=== PATIENT | female | born 1985 | race Caucasian/White ===

== ENCOUNTER → 2016-10-25 | Outpatient (REF) | payer OTHER ==
[~2016-10-25] MED LIST: CALCCHW12 OR; PRENTAB8 PO
== END ==
LOC: M LAB REF 16:48
PROVIDERS: ATTEND Obstetrics & Gynecology
DX: Z12.4 Encounter for screening for malignant neoplasm of cervix (principal)

== ENCOUNTER 2016-12-29 13:37 | Emergency (ER) | payer OTHER ==
[~2016-12-29] VITALS: Ht 154.9 cm; Wt 76.3 kg
[2016-12-29 13:39] VITALS: BP 139/71
[2016-12-29] MEDS ORDERED: MAGN400T2 (13:46)
[2016-12-29] MEDS ORDERED: IBUP80TA (13:46)
[2016-12-29] MEDS ORDERED: LORA10TA2 (13:46)
[2016-12-29] MEDS ORDERED: JUNETAB2 (13:46)
--- NOTE | 2016-12-29 14:25 | REP ---
LEFT KNEE, FIVE VIEWS: HISTORY: Injury. COMPARISON: 04/13/2016. There is no acute fracture or dislocation. The joint spaces are normal in appearance. IMPRESSION: There is no acute fracture or dislocation. Signed by Steve Peguero MD 12/29/2016 02:37 P
[2016-12-29] MEDS ORDERED: MOBI4TAB PO (14:33)
[2016-12-29] MEDS ORDERED: PERC5TAB12 PO (14:33)
[2016-12-29] MEDS ORDERED: PERCOCET 5MG/325MG TAB PO ONE (14:45)
== END 2016-12-29 14:51 | disposition home or self-care (01) ==
LOC: M ED 13:37
DX: M25.562 Pain in left knee (principal); F17.200 Nicotine dependence, unspecified, uncomplicated; Z86.14 Personal history of Methicillin resistant Staphylococcus aureus infection; Z79.899 Other long term (current) drug therapy; Z88.1 Allergy status to other antibiotic agents; Z88.2 Allergy status to sulfonamides; Z88.8 Allergy status to other drugs, medicaments and biological substances

== ENCOUNTER → 2017-01-23 | Outpatient (REF) | payer OTHER ==
[~2017-01-23] MED LIST changes: +IBUP80TA; +JUNETAB2; +LORA10TA2; +MAGN400T2; +MOBI4TAB PO; +PERC5TAB12 PO
[2017-01-23 14:53] LABS: VITAMIN B12 LEVEL 214 PG/ML (247-911)
[2017-01-23 14:58] LABS: ALBUMIN/GLOBULIN RATIO 1.25 (1.00-1.93); ALKALINE PHOSPHATASE 57 U/L (45-117); ALT/SGPT 18 U/L (12-78); ANION GAP 11 MEQ/L (8-16); AST/SGOT 9 U/L (15-37); BILIRUBIN,TOTAL 0.8 MG/DL (0.2-1.0); BLOOD UREA NITROGEN 13 MG/DL (7-18); CALCIUM LEVEL 8.5 MG/DL (8.5-10.1); CARBON DIOXIDE LEVEL 20 MEQ/L (21-32); CHLORIDE LEVEL 112 MEQ/L (98-107); CHOLESTEROL LEVEL 133 MG/DL (<200); CREATININE FOR GFR 0.86 MG/DL (0.55-1.02); GLOMERULAR FILTRATION RATE > 60.0 (>60); GLUCOSE, FASTING 71 MG/DL (70-105); MAGNESIUM LEVEL 2.5 MG/DL (1.8-2.4); POTASSIUM SERUM 4.2 MEQ/L (3.5-5.1); SODIUM LEVEL 143 MEQ/L (136-145); TOTAL PROTEIN 7.2 GM/DL (6.4-8.2); TRIGLYCERIDES LEVEL 84 MG/DL (<150)
== END ==
LOC: M LAB REF 13:36
PROVIDERS: ATTEND Nurse Practitioner Family
DX: E53.8 Deficiency of other specified B group vitamins (principal); E55.9 Vitamin D deficiency, unspecified; R73.9 Hyperglycemia, unspecified; E83.42 Hypomagnesemia; Z13.220 Encounter for screening for lipoid disorders

== ENCOUNTER 2017-02-07 13:10 | Outpatient (RCR) | payer OTHER | END 2017-02-16 | LOC: M PT 13:10 | PROVIDERS: ATTEND Physician Assistant | DX: S83.92XD Sprain of unspecified site of left knee, subsequent encounter (principal); X58.XXXD Exposure to other specified factors, subsequent encounter; Y92.9 Unspecified place or not applicable; S80.02XD Contusion of left knee, subsequent encounter ==

== ENCOUNTER 2017-03-16 10:25 | Outpatient (RCR) | payer OTHER | END 2017-03-18 | LOC: M PT 10:25 | PROVIDERS: ATTEND Physician Assistant | DX: Z51.89 Encounter for other specified aftercare (principal) ==

== ENCOUNTER 2017-03-29 10:45 | Outpatient (RCR) | payer OTHER | END 2017-04-18 | LOC: M PT 10:45 | PROVIDERS: ATTEND Physician Assistant | DX: S83.92XD Sprain of unspecified site of left knee, subsequent encounter (principal); X58.XXXD Exposure to other specified factors, subsequent encounter; Y92.9 Unspecified place or not applicable; S80.02XD Contusion of left knee, subsequent encounter ==

== ENCOUNTER → 2017-05-15 | Outpatient (REF) | payer OTHER | LOC: M LAB REF 14:37 | PROVIDERS: ATTEND Physician Assistant | DX: R30.0 Dysuria (principal); N39.0 Urinary tract infection, site not specified ==

== ENCOUNTER → 2017-05-29 | Outpatient (REF) | payer OTHER | LOC: M LAB REF 12:39 | PROVIDERS: ATTEND Physician Assistant Medical | DX: J32.0 Chronic maxillary sinusitis (principal) ==

== ENCOUNTER → 2017-07-04 | Outpatient (REF) | payer OTHER ==
[2017-07-05 14:03] LABS: AMORPHOUS SEDIMENT MODERATE (NEGATIVE); APPEARANCE, URINE TURBID (CLEAR); BACTERIA, URINE AUTO NEGATIVE (NEGATIVE); BILIRUBIN, URINE AUTO 1+ (NEGATIVE); BLOOD, URINE BLOOD NEGATIVE (NEGATIVE); COLOR, URINE YELLOW (YELLOW); GLUCOSE, URINE (UA) AUTO NEGATIVE (NEGATIVE); KETONE, URINE AUTO TRACE mg/dL (NEGATIVE); LEUKOCYTE ESTERASE, URINE AUTO NEGATIVE (NEGATIVE); MUCUS, URINE LARGE (NEGATIVE); NITRITE, URINE AUTO NEGATIVE (NEGATIVE); PROTEIN, URINE AUTO NEGATIVE (NEGATIVE); RBC, URINE AUTO 0 /HPF (0-3); SPECIFIC GRAVITY URINE AUTO 1.029 (1.002-1.035); SQUAMOUS EPITHELIAL CELL UR AU 0 /HPF (0-6); UROBILINOGEN, URINE AUTO 0.2 mg/dL (0.0-2.0); WBC, URINE AUTO 0 /HPF (0-3)
[2017-07-05 15:55] LABS: CHLAMYDIA DNA AMPLIFICATION NEGATIVE (NEGATIVE); GC DNA AMPLIFICATION NEGATIVE (NEGATIVE)
== END ==
LOC: M LAB REF 13:25
DX: N89.8 Other specified noninflammatory disorders of vagina (principal)

== ENCOUNTER → 2017-07-20 | Outpatient (CLI) | payer OTHER ==
[2017-07-20 19:07] LABS: BASO % 0.5 % (0.0-1.0); EOS # 0.1 10^3/uL (0.0-0.50); EOS % 1.1 % (0.0-3.0); HEMATOCRIT 43.3 % (36.0-47.0); HEMOGLOBIN 14.4 g/dl (12.0-16.0); IMMATURE GRANULOCYTE % 0.2 % (0-0); LYMPH # 2.3 10^3/uL (1.5-4.5); MEAN CORPUSCULAR HEMOGLOBIN 31.6 pg (27.0-33.0); MEAN CORPUSCULAR HGB CONC 33.3 g/dl (32.0-36.5); MONO # 0.5 10^3/uL (0.0-0.8); MONO % 7.9 % (0.0-5.0); NEUTROPHILS # 3.5 10^3/uL (1.8-7.7); NEUTROPHILS % 54.3 % (36.0-66.0); PLATELET COUNT, AUTOMATED 250 10^3/uL (150-450); RED BLOOD COUNT 4.56 10^6/uL (4.00-5.40); WHITE BLOOD COUNT 6.5 10^3/uL (4.0-10.0)
[2017-07-20 19:41] LABS: ERYTHROCYTE SEDIMENTATION RATE 4 mm/hr (0-20)
[2017-07-20 20:17] LABS: RHEUMATOID FACTOR QUANT < 10.0 IU/ML (0-15.0)
[2017-07-22 15:10] LABS: ANTINUCLEAR ANTIBODIES DIRECT Negative (Negative)
[2017-07-25 10:08] LABS: DRVV SCREEN 39.2 SEC
[2017-07-25 10:14] LABS: PTT LUPUS TYPE ANTICOAG SCREEN 0.9 (0-1.2)
== END ==
LOC: M LAB 17:53
DX: R51 Headache (principal); M79.641 Pain in right hand; M25.531 Pain in right wrist
CPT/HCPCS: 73110

== ENCOUNTER → 2017-08-15 | Outpatient (REF) | payer OTHER | LOC: M LAB REF 13:35 | DX: J02.9 Acute pharyngitis, unspecified (principal) ==

== ENCOUNTER 2017-09-18 07:46 | Emergency (ER) | payer OTHER | END 2017-09-18 09:19 | disposition home or self-care (01) | LOC: M ED 07:46 | DX: M65.871 Other synovitis and tenosynovitis, right ankle and foot (principal); F17.200 Nicotine dependence, unspecified, uncomplicated; Z87.81 Personal history of (healed) traumatic fracture; Z88.2 Allergy status to sulfonamides; Z88.1 Allergy status to other antibiotic agents; Z88.8 Allergy status to other drugs, medicaments and biological substances; Z79.899 Other long term (current) drug therapy; Z98.890 Other specified postprocedural states | CPT/HCPCS: 73630 ==

== ENCOUNTER 2017-10-08 20:03 | Emergency (ER) | payer OTHER | END 2017-10-08 20:48 | disposition home or self-care (01) | LOC: M ED 20:03 | DX: S56.911A Strain of unspecified muscles, fascia and tendons at forearm level, right arm, initial encounter (principal); X58.XXXA Exposure to other specified factors, initial encounter; Y92.9 Unspecified place or not applicable; Y93.9 Activity, unspecified; Y99.9 Unspecified external cause status; F17.200 Nicotine dependence, unspecified, uncomplicated; Z79.899 Other long term (current) drug therapy; Z88.1 Allergy status to other antibiotic agents; Z88.2 Allergy status to sulfonamides; Z88.8 Allergy status to other drugs, medicaments and biological substances | CPT/HCPCS: 99282 ==

== ENCOUNTER 2017-10-21 20:30 | Emergency (ER) | payer OTHER | END 2017-10-21 22:01 | disposition home or self-care (01) | LOC: M ED 20:30 | DX: S60.211A Contusion of right wrist, initial encounter (principal); W22.8XXA Striking against or struck by other objects, initial encounter; Y92.018 Other place in single-family (private) house as the place of occurrence of the external cause; Z88.1 Allergy status to other antibiotic agents; Z88.2 Allergy status to sulfonamides; Z88.8 Allergy status to other drugs, medicaments and biological substances; F17.210 Nicotine dependence, cigarettes, uncomplicated | CPT/HCPCS: 73110 ==

== ENCOUNTER → 2017-11-14 | Outpatient (CLI) | payer OTHER | LOC: M RAD 08:27 | DX: S63.91XA Sprain of unspecified part of right wrist and hand, initial encounter (principal); X58.XXXA Exposure to other specified factors, initial encounter; Y92.9 Unspecified place or not applicable | CPT/HCPCS: 73221 ==

== ENCOUNTER → 2017-11-16 | Outpatient (REF) | payer OTHER ==
[2017-11-16 14:13] LABS: APPEARANCE, URINE HAZY (CLEAR); BACTERIA, URINE AUTO NEGATIVE (NEGATIVE); BILIRUBIN, URINE AUTO NEGATIVE (NEGATIVE); BLOOD, URINE BLOOD NEGATIVE (NEGATIVE); COLOR, URINE YELLOW (YELLOW); GLUCOSE, URINE (UA) AUTO NEGATIVE (NEGATIVE); KETONE, URINE AUTO NEGATIVE (NEGATIVE); LEUKOCYTE ESTERASE, URINE AUTO NEGATIVE (NEGATIVE); MUCUS, URINE SMALL (NEGATIVE); NITRITE, URINE AUTO NEGATIVE (NEGATIVE); PROTEIN, URINE AUTO NEGATIVE (NEGATIVE); RBC, URINE AUTO 0 /HPF (0-3); SPECIFIC GRAVITY URINE AUTO 1.025 (1.002-1.035); SQUAMOUS EPITHELIAL CELL UR AU 0 /HPF (0-6); UROBILINOGEN, URINE AUTO 0.2 mg/dL (0.0-2.0); WBC, URINE AUTO 3 /HPF (0-3)
== END ==
LOC: M LAB REF 13:10
DX: N39.0 Urinary tract infection, site not specified (principal)

== ENCOUNTER 2017-12-22 10:18 | Outpatient (RCR) | payer OTHER | END 2018-01-16 | LOC: M OT 10:18 | DX: Z47.89 Encounter for other orthopedic aftercare (principal); S63.91XD Sprain of unspecified part of right wrist and hand, subsequent encounter | CPT/HCPCS: 97110 ==

== ENCOUNTER → 2018-02-12 | Outpatient (REF) | payer OTHER ==
[2018-02-12 14:05] LABS: BASO % 0.4 % (0.0-1.0); EOS % 0.6 % (0.0-3.0); HEMATOCRIT 39.6 % (36.0-47.0); HEMOGLOBIN 13.4 g/dl (12.0-15.5); IMMATURE GRANULOCYTE % 0.2 % (0-3.0); LYMPH # 1.5 10^3/uL (1.5-4.5); MEAN CORPUSCULAR HEMOGLOBIN 31.9 pg (27.0-33.0); MEAN CORPUSCULAR HGB CONC 33.8 g/dl (32.0-36.5); MEAN CORPUSCULAR VOLUME 94.3 fl (80.0-96.0); MONO # 0.3 10^3/uL (0.0-0.8); MONO % 6.1 % (0.0-5.0); NEUTROPHILS # 2.9 10^3/uL (1.8-7.7); NEUTROPHILS % 60.7 % (36.0-66.0); PLATELET COUNT, AUTOMATED 236 10^3/uL (150-450); RED CELL DISTRIBUTION WIDTH 12.1 % (11.5-14.5); WHITE BLOOD COUNT 4.7 10^3/uL (4.0-10.0)
[2018-02-12 14:24] LABS: TOTAL 25(OH) VITAMIN D 40.1 NG/ML (30.0-100.0)
[2018-02-12 14:24] LABS: VITAMIN B12 LEVEL 621 PG/ML (247-911)
== END ==
LOC: M LAB REF 13:53
DX: R23.8 Other skin changes (principal)

== ENCOUNTER → 2018-03-07 | Outpatient (REF) | payer OTHER | LOC: M LAB REF 13:05 | DX: R30.0 Dysuria (principal) ==

== ENCOUNTER 2018-03-14 13:48 | Outpatient (RCR) | payer OTHER | END 2018-03-18 | LOC: M PT 13:48 | DX: Z51.89 Encounter for other specified aftercare (principal); M76.62 Achilles tendinitis, left leg | CPT/HCPCS: 97140 ==

== ENCOUNTER 2018-03-28 10:50 | Outpatient (RCR) | payer OTHER | END 2018-04-18 | LOC: M PT 10:50 | DX: Z47.89 Encounter for other orthopedic aftercare (principal); M76.62 Achilles tendinitis, left leg | CPT/HCPCS: 97010 ==

== ENCOUNTER → 2018-04-11 | Outpatient (CLI) | payer OTHER ==
[2018-04-11 12:07] LABS: BASO % 0.4 % (0.0-1.0); EOS % 0.3 % (0.0-3.0); HEMATOCRIT 38.7 % (36.0-47.0); HEMOGLOBIN 13.4 g/dl (12.0-15.5); IMMATURE GRANULOCYTE % 0.4 % (0-3.0); LYMPH # 1.2 10^3/uL (1.5-4.5); MEAN CORPUSCULAR HEMOGLOBIN 32.2 pg (27.0-33.0); MEAN CORPUSCULAR HGB CONC 34.6 g/dl (32.0-36.5); MONO # 0.5 10^3/uL (0.0-0.8); MONO % 6.2 % (0.0-5.0); NEUTROPHILS % 77.7 % (36.0-66.0); PLATELET COUNT, AUTOMATED 217 10^3/uL (150-450); RED BLOOD COUNT 4.16 10^6/uL (4.00-5.40); WHITE BLOOD COUNT 7.7 10^3/uL (4.0-10.0)
[2018-04-11 13:20] LABS: IMMUNOGLOBULIN G 842 MG/DL (681-1648); IMMUNOGLOBULIN M 52 MG/DL (40-230); RUBELLA IgG QUALITATIVE IMMUNE (IMMUNE)
[2018-04-11 13:53] LABS: IMMUNOGLOBULIN E < 3.6 IU/ML (<100)
== END ==
LOC: M LAB 11:27
DX: D84.9 Immunodeficiency, unspecified (principal)
CPT/HCPCS: 82785

== ENCOUNTER → 2018-07-30 | Outpatient (CLI) | payer OTHER ==
[~2018-07-30] MED LIST changes: +GABA-1171 PO; +LORA-243; -LORA10TA2; +MONT10TA2; +NAPR-50 PO; +ROPI0.5T; +TOPI100T9
--- NOTE | 2018-07-30 13:43 | REP ---
RIGHT FOREARM, TWO VIEWS: HISTORY: Pain. There is no acute fracture or dislocation. The joint spaces are normal in appearance. IMPRESSION:There is no acute fracture or dislocation. Electronically Signed by Steve Peguero MD 07/30/2018 01:48 P
== END ==
LOC: M WUC 10:08
PROVIDERS: ATTEND Physician Assistant
DX: M79.631 Pain in right forearm (principal)

== ENCOUNTER 2018-08-19 12:23 | Emergency (ER) | payer OTHER ==
[~2018-08-19] VITALS: Ht 157.5 cm; Wt 65.9 kg
[~2018-08-19 12:23] MED LIST changes: -MONT10TA2; +MONT10TA2 PO; -ROPI0.5T; +ROPI0.5T PO
[2018-08-19 12:24] VITALS: BP 134/72
[2018-08-19] MEDS ORDERED: HYDR-3363 PO (12:29)
[2018-08-19] MEDS ORDERED: MICR1TAB18 PO (12:29)
[2018-08-19] MEDS ORDERED: FLON1SPR NARES (12:29)
[2018-08-19] MEDS ORDERED: NORCO, ANEXSIA 5/325MG TABLET (HYDROcodone/ACETAMINOPHEN) PO ONE (13:00)
--- NOTE | 2018-08-19 13:06 | REP ---
Clinical: trauma. Technique: AP, lateral, bilateral oblique views right ankle. Findings: No acute fracture or dislocation. Lateral swelling. Skeletal structures and joint spaces are intact and normal. Ankle mortise appears stable. No subcutaneous emphysema or radiodense foreign body. Impression: lateral swelling. no fx. Electronically Signed by Cyrus Do MD 08/19/2018 12:58 P
== END 2018-08-19 14:00 | disposition home or self-care (01) ==
LOC: M ED 12:23
DX: S93.401A Sprain of unspecified ligament of right ankle, initial encounter (principal); X50.9XXA Other and unspecified overexertion or strenuous movements or postures, initial encounter; Y92.018 Other place in single-family (private) house as the place of occurrence of the external cause; Z79.899 Other long term (current) drug therapy; Z88.1 Allergy status to other antibiotic agents; Z88.2 Allergy status to sulfonamides; Z88.8 Allergy status to other drugs, medicaments and biological substances; Z87.891 Personal history of nicotine dependence

== ENCOUNTER → 2019-03-13 | Outpatient (REF) | payer OTHER ==
[~2019-03-13] MED LIST changes: +FLON1SPR NARES; +HYDR-3363 PO; +MICR1TAB18 PO; -NAPR-50 PO; +NAPR-837 PO
[2019-03-15 14:22] LABS: HPV HYBRID CAPTURE II Negative (Negative)
== END ==
LOC: M LAB REF 19:30
PROVIDERS: ATTEND Obstetrics & Gynecology
DX: Z12.4 Encounter for screening for malignant neoplasm of cervix (principal); R87.610 Atypical squamous cells of undetermined significance on cytologic smear of cervix (ASC-US)

== ENCOUNTER → 2019-07-25 | Outpatient (REF) | payer OTHER ==
[2019-07-25 19:26] LABS: INFLUENZA A AMPLIFICATION NEGATIVE (NEGATIVE); INFLUENZA B AMPLIFICATION NEGATIVE (NEGATIVE)
== END ==
LOC: M LAB REF 16:16
PROVIDERS: ATTEND Physician Assistant
DX: J11.1 Influenza due to unidentified influenza virus with other respiratory manifestations (principal)

== ENCOUNTER → 2019-11-10 | Outpatient (CLI) | payer OTHER ==
[~2019-11-10] MED LIST changes: -MONT10TA2 PO; +MONT10TA4 PO; -ROPI0.5T PO; +ROPI0.5T3 PO
== END ==
LOC: M LABSMTC 09:14
PROVIDERS: ATTEND Orthopaedic Surgery
DX: Z11.59 Encounter for screening for other viral diseases (principal)

== ENCOUNTER 2020-02-06 09:46 | Emergency (ER) | payer OTHER ==
[~2020-02-06] VITALS: Ht 157.5 cm; Wt 86.1 kg
[2020-02-06] MEDS ORDERED: FLUO10CA16 (09:55)
[2020-02-06] MEDS ORDERED: ACETAMINOPHEN 500 MG TAB PO ONE (10:30)
[2020-02-06 11:25] LABS: BASO % 0.5 % (0.0-1.0); EOS % 0.5 % (0.0-3.0); HEMATOCRIT 42.2 % (36.0-47.0); HEMOGLOBIN 14.3 g/dl (12.0-15.5); LYMPH # 1.7 10^3/uL (1.5-5.0); LYMPH % 27.2 % (24.0-44.0); MEAN CORPUSCULAR HEMOGLOBIN 32.1 pg (27.0-33.0); MEAN CORPUSCULAR HGB CONC 33.9 g/dl (32.0-36.5); MEAN CORPUSCULAR VOLUME 94.6 fl (80.0-96.0); MONO # 0.5 10^3/uL (0.0-0.8); MONO % 7.5 % (0.0-5.0); NEUTROPHILS % 63.5 % (36.0-66.0); PLATELET COUNT, AUTOMATED 314 10^3/uL (150-450); RED BLOOD COUNT 4.46 10^6/uL (4.00-5.40); WHITE BLOOD COUNT 6.3 10^3/uL (4.0-10.0)
[2020-02-06 11:44] LABS: HCG, SERUM QUALITATIVE NEGATIVE (NEGATIVE)
[2020-02-06 11:48] LABS: ALBUMIN 3.2 GM/DL (3.2-5.2); ALT/SGPT 17 U/L (12-78); BILIRUBIN,DIRECT 0.1 MG/DL (0.0-0.2); BILIRUBIN,TOTAL 0.6 MG/DL (0.2-1.0); BLOOD UREA NITROGEN 10 MG/DL (7-18); CALCIUM LEVEL 8.5 MG/DL (8.5-10.1); CARBON DIOXIDE LEVEL 25 MEQ/L (21-32); CHLORIDE LEVEL 110 MEQ/L (98-107); CREATININE FOR GFR 0.74 MG/DL (0.55-1.30); GLOMERULAR FILTRATION RATE > 60.0 (>60); GLUCOSE, FASTING 87 MG/DL (70-100); LIPASE 68 U/L (73-393); POTASSIUM SERUM 4.2 MEQ/L (3.5-5.1); SODIUM LEVEL 139 MEQ/L (136-145); TOTAL PROTEIN 6.6 GM/DL (6.4-8.2)
[2020-02-06 11:58] LABS: BILIRUBIN, URINE MANUAL NEGATIVE (NEGATIVE); GLUCOSE, URINE (UA) MANUAL NEGATIVE (NEGATIVE); KETONE, URINE MANUAL NEGATIVE (NEGATIVE); UROBILINOGEN, URINE MANUAL NORMAL (NORMAL)
[2020-02-06 12:11] LABS: SQUAMOUS EPITHELIAL CELL URINE LARGE AMOUNT /hpf (SMALL AMT)
[2020-02-06 12:12] LABS: BACTERIA, URINE SMALL AMOUNT; MUCUS, URINE LARGE AMOUNT (NEGATIVE); RBC, URINE 0-1 /hpf (0-3)
--- NOTE | 2020-02-06 12:51 | REPVR ---
PROCEDURE INFORMATION: Exam: CT Abdomen And Pelvis Without Contrast Exam date and time: 02/06/2020 11:54 AM Age: 34 years old Clinical indication: Abdominal pain; Flank; Left; Additional info: Left cva/flank pain TECHNIQUE: Imaging protocol: Computed tomography of the abdomen and pelvis without contrast. Radiation optimization: All CT scans at this facility use at least one of these dose optimization techniques: automated exposure control; mA and/or kV adjustment per patient size (includes targeted exams where dose is matched to clinical indication); or iterative reconstruction. COMPARISON: US PELVIC NON-OB COMPLETE 05/24/2016 8:24 PM FINDINGS: Detailed evaluation of the abdominal and pelvic viscera is somewhat limited in the absence of intravenous contrast. Diaphragm: Asymmetric elevation of the right hemidiaphragm. Liver: Fatty infiltration of the liver. Gallbladder and bile ducts: No cholelithiasis or biliary ductal dilatation. Pancreas: No pancreatic mass or ductal dilatation. Spleen: No splenomegaly. Adrenals: Unremarkable adrenals. Kidneys and ureters: Normal renal morphology. No hydronephrosis or urolithiasis. Stomach and bowel: Mild wall thickening in the nondistended stomach. No significant small bowel dilatation. Prominent stool, in a pattern of constipation. Diverticula, without pericolonic inflammation. Appendix: No acute appendicitis. Intraperitoneal space: No significant free fluid. Vasculature: Normal caliber of the abdominal aorta. Lymph nodes: Subcentimeter lymph nodes. Bladder: Nondistended bladder. Reproductive: Surgical clips in the right adnexa. Bones/joints: Transitional vertebra at the lumbosacral junction. Soft tissues: Small umbilical hernia, along with umbilical piercing. IMPRESSION: 1. No hydronephrosis or urolithiasis. 2. Additional findings as described above. Electronically signed by: Niko Goodman On 02/06/2020 12:51:38 PM
[2020-02-06 13:20] VITALS: BP 111/69
[2020-02-06 13:31] LABS: HYALINE CAST, URINE NONE SEEN /lpf (0-1)
== END 2020-02-06 13:40 | disposition home or self-care (01) ==
LOC: M ED 09:46
DX: K59.00 Constipation, unspecified (principal); M54.5 Low back pain; K42.9 Umbilical hernia without obstruction or gangrene; K76.0 Fatty (change of) liver, not elsewhere classified; F17.210 Nicotine dependence, cigarettes, uncomplicated; Z88.2 Allergy status to sulfonamides; Z88.1 Allergy status to other antibiotic agents; Z88.8 Allergy status to other drugs, medicaments and biological substances; Z79.899 Other long term (current) drug therapy

== ENCOUNTER → 2020-05-27 | Outpatient (REF) | payer OTHER ==
[~2020-05-27] MED LIST changes: +FLUO10CA16; -MONT10TA4 PO; +MONT5TAB2 PO
[2020-05-27 23:29] LABS: APPEARANCE, URINE CLOUDY (CLEAR); BACTERIA, URINE AUTO NEGATIVE (NEGATIVE); BILIRUBIN, URINE AUTO NEGATIVE (NEGATIVE); BLOOD, URINE BLOOD NEGATIVE (NEGATIVE); COLOR, URINE YELLOW (YELLOW); GLUCOSE, URINE (UA) AUTO NEGATIVE (NEGATIVE); KETONE, URINE AUTO NEGATIVE (NEGATIVE); LEUKOCYTE ESTERASE, URINE AUTO 2+ (NEGATIVE); MUCUS, URINE SMALL (NEGATIVE); NITRITE, URINE AUTO NEGATIVE (NEGATIVE); PROTEIN, URINE AUTO 1+ mg/dL (NEGATIVE); RBC, URINE AUTO 1 /HPF (0-3); SQUAMOUS EPITHELIAL CELL UR AU 6 /HPF (0-6); WBC, URINE AUTO 13 /HPF (0-3)
== END ==
LOC: M LAB 23:16
PROVIDERS: ATTEND Physician Assistant
DX: N39.0 Urinary tract infection, site not specified (principal)

== ENCOUNTER 2020-07-01 11:01 | Emergency (ER) | payer OTHER ==
[~2020-07-01] VITALS: Ht 158.8 cm; Wt 85.4 kg
[2020-07-01 11:01] VITALS: BP 143/89
--- OUTSIDE RECORDS SUMMARY | 2020-07-01 11:07 | CCD | Continuity of Care Document ---
Author Author Alecia HUSSEIN Organization Unknown Address [address] [facility], [facility] e [address] [place] [address] Phone [phone] Care Team Providers Care Metallurgical Analyst Name Role Phone Maria Eugenia Wheeler WEB PRESS OPERATOR AUTM [phone] AlexAnne moore TENNIS INSTRUCTOR AUTM [phone] Problems Description No Information Available Social History Type Date Description Comments Sex Unknown ETOH Use Denies alcohol use Tobacco Use Start: Unknown Patient is a current smoker, smo kes every day smokes 2-3 a day Allergies, Adverse Reactions, Alerts Active Allergies Reaction Severity Comments Date Sudafed 01/04/2018 sulfa drugs 08/21/2018 Azithromycin 08/21/2019 Inactive Allergies NKDA 10/26/2017 Medications Active Medications SIG Qnty Indications Ordering Provide r Date Oxycodone HCL 5mg Tablets 1-2 tabs by mouth every 4 to 6 hours as needed / post surgical pain.( Please DO Not Fill Until 11/13/19). 30tabs Gwen Gardner MD 0 Gabapentin 100mg Capsules Unknown Naproxen 500mg Tablets Take One Tablet By Mouth Twice Daily as Needed Unknown Prednisone 10mg Tablets Take Three Tablets By Mouth Once Daily For Five Days Unknown Methylprednisolone 4mg TBPK Unknown Nicotine Polacrilex 4mg Gum Use as Directed Every One Hour as Needed Unknown Hydroxyzine HCL 25mg Tablets Unknown Benzonatate 200mg Capsules Take One Capsule By Mouth Three Times Daily For Seven Days Unknown Cefdinir 300mg Capsules Take One Capsule By Mouth Every 12 Hours For 10 Days Unknown Fluticasone Propionate 50mcg/Act Suspension instill Two Sprays In Each Nostril Once Daily Unknown Valacyclovir HCL 1gm Tablets Unknown Albuterol Sulfate HFA 108(90Base) mcg/Act Aerosol Inhale Two Puffs By Mouth Every 4 Hours as Needed Unknown Gabapentin 300mg Capsules Unknown Benzonatate 100mg Capsules Unknown Amoxicillin 875mg Tablets Unknown Doxycycline Monohydrate 100mg Caps ules Take One Capsule Two Times A Day For Seven Days Unknown Prednisone 20mg Tablets Take Two Tablets By Mouth Once Daily For Five Days Unknown Montelukast Sodium 10mg Tablets Unknown Fluoxetine HCL 10mg Capsules Take One Capsule By Mouth Once Daily Unknown Oseltamivir Phosphate 75mg Capsule s Take One Capsule By Mouth Twice Daily For Five Days U nknown Loratadine 10mg Tablets Unknown Topiramate 100mg Tablets Unknown Ropinirole HCL 2mg Tablets Unknown Ibuprofen 800mg Tablets Unknown Junel 1.5/30 1.5-30mg-mcg Tablets Unknown Immunizations Description No Information Available Vital Signs Date Vital Result Comment 04/30/2020 2:26pm Body Temperature 97.3 F 11/28/2019 12:59pm Body Temperature 96.0 F Results Description No Information Available Procedures Date Code Description Status 06/03/2020 66921 MRI Lower Extremity Any Joint Co mpleted 05/07/2020 92949 X-Ray Knee Complete W/Obliques & Tunnel And/Or Standing Views Completed 02/07/2020 64890 Therapeutic Procedure, Each 15 M inutes Completed 02/03/2020 35918 Therapeutic Procedure, Each 15 M inutes Completed 01/28/202074117 Inject/Drain Joint/Bursa Major C ompleted 01/27/2020 79583 Therapeutic Procedure, Each 15 M inutes Completed 01/24/2020 21673 Therapeutic Procedure, Each 15 M inutes Completed 01/24/2020 47767 Hot Or Cold Packs Completed 01/22/2020 02874 Therapeutic Procedure, Each 15 M inutes Completed 01/17/2020 58246 Therapeutic Procedure, Each 15 M inutes Completed 01/13/2020 89157 Therapeutic Procedure, Each 15 M inutes Completed 01/10/2020 09912 Therapeutic Procedure, Each 15 M inutes Completed 01/06/2020 60119 Physical Therapy Eval - Low Comp lexity Completed Medical Devices Description No Information Available Encounters Type Date Location Provider Dx Diagnosis Office Visit 05/07/2020 1:30p [place] Edison Alcantar, P.A. M25.562 Pain in left knee Office Visit 04/30/2020 2:30p Kenny Mejia PA-C M1 7.12 Unilateral primary osteoarthritis, left knee Office Visit 12/26/2019 1:45p [place] MD S86. 312D Strain musc/tend peroneal grp at low leg lev, left leg, subs Assessments Date Code Description Provider 06/03/2020 M25.562 Pain in left knee Edison avendano, P.A. 06/03/2020 M25.562 Pain in left knee MRI 05/07/2020 M25.562 Pain in left knee Edison avendano, P.A. 04/30/2020 M17.12 Unilateral primary osteoarthriti s, left knee Desire Mejia PA-C 03/17/2020 S86.312D Strain of muscle(s) and tendon(s) of peroneal muscle group at lower leg level, left leg, subsequent encounter Gwen Gardner MD 03/17/2020 S86.312D Strain of muscle(s) and tendon(s) of peroneal muscle group at lower leg level, left leg, subsequent encounter Gwen Gardner MD 02/07/2020 S86.312D Strain of muscle(s) and tendon(s) of peroneal muscle group at lower leg level, left leg, subsequent encounter Nyasia Hargrove PTA 02/03/2020 S86.312D Strain of muscle(s) and tendon(s) of peroneal muscle group at lower leg level, left leg, subsequent encounter Ajit Ricardo, PT, DPT 01/30/2020 S86.312D Strain of muscle(s) and tendon(s) of peroneal muscle group at lower leg level, left leg, subsequent encounter Gwen Gardner MD 01/28/2020 M17.12 Unilateral primary osteoarthriti s, left knee Ada Riojas PA-C 01/27/2020 S86.312D Strain of muscle(s) and tendon(s) of peroneal muscle group at lower leg level, left leg, subsequent encounter Nyasia Hargrove, VICE PRESIDENT OF HUMAN RESOURCES 01/24/2020 S86.312D Strain of muscle(s) and tendon(s) of peroneal muscle group at lower leg level, left leg, subsequent encounter Nyasia Hoppere, VICE PRESIDENT OF HUMAN RESOURCES 01/22/2020 S86.312D Strain of muscle(s) and tendon(s) of peroneal muscle group at lower leg level, left leg, subsequent encounter Monique López P.T.A. 01/17/2020 S86.312D Strain of muscle(s) and tendon(s) of peroneal muscle group at lower leg level, left leg, subsequent encounter Ajit Ricardo PT, DPT 01/13/2020 S86.312D Strain of muscle(s) and tendon(s) of peroneal muscle group at lower leg level, left leg, subsequent encounter Nyasia Hargrove, VICE PRESIDENT OF HUMAN RESOURCES 01/10/2020 S86.312D Strain of muscle(s) and tendon(s) of peroneal muscle group at lower leg level, left leg, subsequent encounter Ajit Ricardo PT, DPT 01/06/2020 S86.312D Strain of muscle(s) and tendon(s) of peroneal muscle group at lower leg level, left leg, subsequent encounter Ajit Ricardo PT, DPT 12/26/2019 S86.312D Strain of muscle(s) and tendon(s) of peroneal muscle group at lower leg level, left leg, subsequent encounter Gwen Gardner MD Plan of Treatment 05/07/2020 - Edison Alcantar, PSarahy.* M25.562 Pain in left knee* Follow up:* after lt knee mri for results with mkm Functional Status Description No Information Available Mental Status Description No Information Available Referrals Refer to Dr Reason for Referral Status Appt Date Yareli Fernandez PA-C MRI APPROVED PER [facility] WEB FOR MRI LEFT KNEE (31429) TO X-RAY. DG Created [address] [place] [address] [place] [address] [phone] Yareli Fernandez PA-C [facility] for [phone] e valuation. Patient going here, passed to PT Dept. AC Closed [address] [place] [address] [phone]
--- OUTSIDE RECORDS SUMMARY | 2020-07-01 11:07 | CCD | Continuity of Care Document ---
Author Author Alecia HUSSEIN Organization Unknown Address [address] [facility], [facility] e [address] [place] [address] Phone [phone] Care Team Providers Care Front Desk Clerk Name Role Phone Maria Eugenia Wheeler FIELD CANE SCALER HELPER AUTM [phone] AlexShankar mooree IV RN AUTM [phone] Problems Description No Information Available Social History [...] Information Available Procedures Date Code Description Status 05/07/2020 48210 X-Ray Knee Complete W/Obliques & Tunnel And/Or Standing Views Completed 02/07/2020 01260 Therapeutic Procedure, Each 15 M inutes Completed 02/03/2020 07982 Therapeutic Procedure, Each 15 M inutes Completed 01/28/2020 99148 Inject/Drain Joint/Bursa Major C ompleted 01/27/2020 51710 Therapeutic Procedure, Each 15 M inutes Completed 01/24/2020 64345 Therapeutic Procedure, Each 15 M inutes Completed 01/24/2020 91468 Hot Or Cold Packs Completed 01/22/2020 37439 Therapeutic Procedure, Each 15 M inutes Completed 01/17/2020 41212 Therapeutic Procedure, Each 15 M inutes Completed 01/13/2020 64550 Therapeutic Procedure, Each 15 M inutes Completed 01/10/2020 16300 Therapeutic Procedure, Each 15 M inutes Completed 01/06/2020 60151 Physical Therapy Eval - Low Comp lexity Completed Medical Devices Description No Information Available Encounters Type Date Location Provider Dx Diagnosis Office Visit 05/07/2020 1:30p [place] Alc[place]ar [place] M25.562 Pain in left knee Office Visit 04/30/2020 2:30p [place] Desire Mejia PA-C M1 7.12 Unilateral primary osteoarthritis, left knee Office Visit 12/26/2019 1:45p [place] MD S86. 312D Strain musc/tend peroneal grp at low leg lev, left leg, subs Assessments Date Code Description Provider 05/07/2020 M25.562 Pain in left knee Ever Ruiz 04/30/2020 M17.12 Unilateral primary osteoarthriti s, left [...] level, left leg, subsequent encounter Nyasia Hargrove, ASSOCIATE FINANCIAL PLANNER 01/24/2020 S86.312D Strain of muscle(s) and tendon(s) of peroneal muscle group at lower leg level, left leg, subsequent encounter Nyasia Hoppere, ASSOCIATE FINANCIAL PLANNER 01/22/2020 S86.312D Strain of muscle(s) and tendon(s) [...] level, left leg, subsequent encounter Nyasia Hargrove, ASSOCIATE FINANCIAL PLANNER 01/10/2020 S86.312D Strain of muscle(s) and tendon(s) [...] left leg, subsequent encounter Gwen Gardner MD 12/13/2019 S86.312D Strain of muscle(s) and tendon(s) of peroneal muscle group at lower leg level, left leg, subsequent encounter Gwen Gardner MD Plan of Treatment 05/07/2020 - Edison Alcantar, P.A.* M25.562 Pain in left knee* Follow up:* after lt knee mri for results with mkm Functional Status Description No Information Available Mental Status Description No Information Available Referrals Refer to Reason for Referral Status Appt Date Yareli Fernandez PA-C MRI APPROVED PER [facility] WEB FOR MRI LEFT KNEE (04754) TO X-RAY. DG Created [address] [address] [phone] Yareli Fernandez [place] [phone] e valuation. Patient going here, passed to PT Dept. AC Closed [facility] [address] [id number] [phone]
--- OUTSIDE RECORDS SUMMARY | 2020-07-01 11:07 | CCD | Continuity of Care Document ---
Author Author Alecia BRIDGES P.A.-C. Organization Unknown Address [address] [place] [address] Phone [phone] Care Team Providers Care Cured Meat Packing Supervisor Name Role Phone Bia Olson M.D. AUTM [phone] Liam Maria Eugeniadebi ARENAS AUTM [phone] Problems Active Problems Provider Date Paresthesia of hand Bia Olson M.D. Onset: 12/23/2013 Low back pain Bia Olson M.D. Onset: 12/23/2013 Pain in lower limb Bia Olson M.D. Onset: 12/23/2013 Hand pain Bia Olson M.D. Onset: 12/23/2013 Pain in right lower limb Bia Olson M.D. Onset: 11/09/19 16 Pain in left lower limb Bia Olson M.D. Onset: 6 Social History Type Date Description Comments Sex Unknown Tobacco Use Start: Unknown Patient has never smoked Allergies, Adverse Reactions, Alerts Active Allergies Reaction Severity Comments Date Sulfa Antibiotics 12/23/2013 Medications Active Medications SIG Qnty Indications Ordering Provide r Date Methocarbamol 500mg Tablets 1 po qhs prn 30tabs G44.219 Bia Olson M.D. 05/25/2020 Ropinirole HCL 2mg Tablets Take One Tablet By Mouth AT Bedtime 30tabs G25.81 Israel Olson M.D. 11/20/2018 Topiramate 100mg Tablets Take One Tablet By Mouth AT Bedtime 30tabs R51 Israel Olson M.D. 11/12/2018 Ibu 800mg Tablets Take One Tablet By Mouth Every 12 Hours as Needed Max Daily Dose Two Tablets 60tabs Bia Olson M.D. 05/22/2014 Immunizations Description No Information Available Vital Signs Date Vital Result Comment 08/09/2019 10:21am BP Systolic 112 mmHg BP Diastolic 80 mmHg Heart Rate 80 /min Respiratory Rate 16 /min 04/18/2019 6:40am BP Systolic 110 mmHg BP Diastolic 80 mmHg Heart Rate 80 /min Respiratory Rate 16 /min Results Description No Information Available Procedures Description No Information Available Medical Devices Description No Information Available Encounters Type Date Location Provider Dx Diagnosis Office Visit 05/25/2020 8:15a Main office - [place] Hipolito Santa.A.-C. 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 05/25/2020 M26.633 Articular disc disorder of bilat eral temporomandibular joint Hipolito Chung.A.-C. 05/25/2020 R20.2 Paresthesia of skin Hipolito Santa.A.-CBrent 05/25/2020 G25.81 Restless legs syndrome Albert ValerioABrent-CBrent 05/25/2020 M54.5 Low back pain Hipolito Chung.A.-C. 12/10/2019 R51 Headache Hipolito Chung.A.-C. 12/10/2019 M26.633 Articular disc disorder of bilat eral temporomandibular joint Lisa ChungCBrent 12/10/2019 M54.5 Low back pain Leslikarrie Bridges P.A.-C. 12/10/2019 G25.81 Restless legs syndrome Lesli adams P.A.-C. 12/10/2019 R20.2 Paresthesia of skin Lesli kramer P.A.-C. Plan of Treatment Future Appointment(s):* 08/24/2020 1:30 pm - Lesli Bridges P.A.-C. at Main office - [place] 05/25/2020 - Lesli Bridges P.A.-C.* G44.219 Episodic tension-type headache, not intractable* New Medication:* Methocarbamol 500 mg - 1 po qhs prn * Comments:* Add methocarbamol as needed. 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 She was advised to use a mouth guard. * R20.2 Paresthesia of skin* Comments:* Continue gabapentin. * G25.81 Restless legs syndrome* Comments:* Controlled. * M54.5 Low back pain* Comments:* Add methocarbamol. Increase gabapentin to 300 mg qhs. She has it at home. She declines PT. Hand out for back exercises sent to pt. * Follow up:* 3 months Functional Status Description No Information Available Mental Status Description No Information Available Referrals Description No Information Available
--- OUTSIDE RECORDS SUMMARY | 2020-07-01 11:07 | CCD | Continuity of Care Document ---
Author Author Alecia BRIDGES P.A.-C. Organization Unknown Address [address] [place] [address] Phone [phone] Care Team Providers Care Ton Container Shipper Name Role Phone Bia Olson M.D. AUTM [phone] Liam Maria Eugeniadebi ARENAS AUTM [phone] Problems Active Problems Provider Date Paresthesia of [...] Date Location Provider Dx Diagnosis Office Visit 12/10/2019 12:00p Main office - [place] Hipolito Santa.A.-C. R51 Headache M26.633 Articular disc disorder of b ilateral temporomandibular joint M54.5 Low back pain G25.81 Restless legs syndrome R20.2 Paresthesia of skin Assessments Date Code Description Provider 05/25/2020 G44.219 Episodic tension-type headache, not intractable Hipolito Chung.A.-C. 05/25/2020 M26.633 Articular disc disorder of bilat eral temporomandibular joint Hipolito Chung.A.-C. 05/25/2020 R20.2 Paresthesia of skin Hipolito Santa.A.-C. 05/25/2020 G25.81 Restless legs syndrome Albert ValerioA.-C. 05/25/2020 M54.5 Low back pain Hipolito Chung.A.-C. 12/10/2019 R51 Headache Hipolito Chung.A.-C. 12/10/2019 M26.633 Articular disc disorder of bilat eral temporomandibular joint Lesli Bridges P.A.-C. 12/10/2019 M54.5 Low back pain Lesli Bridges P.A.-C. 12/10/2019 G25.81 Restless legs syndrome Albert ValerioA.-C. 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
--- OUTSIDE RECORDS SUMMARY | 2020-07-01 11:07 | CCD | Continuity of Care Document ---
Author Author Alecia TURPIN [place] Organization Unknown Address [address] [place] [address] Phone [phone] Care Team Providers Care Digital Account Coordinator Name Role Phone [facility] AUTM [phone] [employer] AUTM [phone] Problems Description No Information Available Social History Type Date Description Comments Sex Unknown ETOH Use Denies alcohol use Tobacco Use Start: Unknown Patient is a current smoker, smo kes every day 4/day Smoking Status Reviewed: 06/24/20 Patient is a current smoker, smokes every day 4/day Allergies, Adverse Reactions, Alerts Active Allergies Reaction Severity Comments Date Sudafed hives 09/26/2017 Sulfa hives 09/26/2017 Zithromax hives 09/26/2017 Medications Active Medications SIG Qnty Indications Ordering Provide r Date Naproxen 375mg Tablets take 1 tablet by mouth 3 times daily as needed 30tabs M65.831 Mahendra Kan JR., M.D. 07/30/2018 Singulair 10mg Tablets 1 tab by mouth qdaily Unknown Loratadine 10mg Capsules 1 by mouth every day Unknown Topamax 100mg Tablets Unknown Requip Tablets Unknown Gabapentin 100mg Capsules Unknown BCP Unknown Hydroxyzine HCL Unknown 0 Ibuprofen 800mg Tablets none today take one tablet every 6-8hrs with food Unknown Nicorette 2mg Gum 3-4 qd Unknown Immunizations Description No Information Available Vital Signs Date Vital Result Comment 06/24/2020 3:46pm BP Systolic 158 mmHg BP Diastolic 83 mmHg Heart Rate 72 /min Respiratory Rate 16 /min O2 % BldC Oximetry 99 % Body Temperature 96.2 F Weight 188.00 lb Pain Level 7 02/02/2019 12:12pm BP Systolic 121 mmHg BP Diastolic 81 mmHg Heart Rate 94 /min Respiratory Rate 18 /min O2 % BldC Oximetry 97 % Body Temperature 98.3 F Weight 190.00 lb Height 61.5 inches 5'1.50" BMI (Body Mass Index) 35.3 kg/m2 Pain Level 6 Results Description No Information Available Procedures Description No Information Available Medical Devices Description No Information Available Encounters Type Date Location Provider Dx Diagnosis Office Visit 06/24/2020 3:35p Main Office DAISY Stanford J06 .9 Acute upper respiratory infection, unspecified Z20.828 Contact w and exposure to ot h viral communicable diseases Assessments Date Code Description Provider 06/24/2020 J06.9 Acute upper respiratory infectio n, unspecified DAISY Stanford 06/24/2020 Z20.828 Contact with and (brooks spected) exposure to other viral communicable diseases DAISY Stanford Plan of Treatment No Information Available Functional Status Description No Information Available Mental Status Description No Information Available Referrals Description No Information Available
--- OUTSIDE RECORDS SUMMARY | 2020-07-01 11:07 | CCD | Continuity of Care Document ---
Author Author Alecia TURPIN [place] Organization Unknown Address [address] [place] [address] Phone [phone] Care Team Providers Care Psychiatric Social Worker Name Role Phone [facility] AUTM [phone] [employer] AUTM [phone] Problems Description No Information Available Social History [...]
--- OUTSIDE RECORDS SUMMARY | 2020-07-01 11:08 | CCD | Continuity of Care Document ---
Author Author Alecia ALCANTAR P.A. Organization Unknown Address [address] [address] Phone [phone] Care Team Providers Care Vegetable Worker Name Role Phone Maria Eugenia Wheeler LEAD ASSISTANT MANAGER AUTM [phone] Anne Velasco TOP IRONER AUTM [phone] Problems Description No Information Available Social History [...] Available Procedures Date Code Description Status 05/07/2020 68826 X-Ray Knee Complete W/Obliques & Tunnel And/Or Standing Views Completed 02/07/2020 49187 Therapeutic Procedure, Each 15 M inutes Completed 02/03/2020 51812 Therapeutic Procedure, Each 15 M inutes Completed 01/28/2020 99122 Inject/Drain Joint/Bursa Major C ompleted 01/27/2020 45866 Therapeutic Procedure, Each 15 M inutes Completed 01/24/2020 74732 Therapeutic Procedure, Each 15 M inutes Completed 01/24/2020 20079 Hot Or Cold Packs Completed 01/22/2020 30997 Therapeutic Procedure, Each 15 M inutes Completed 01/17/2020 27494 Therapeutic Procedure, Each 15 M inutes Completed 01/13/2020 51927 Therapeutic Procedure, Each 15 M inutes Completed 01/10/2020 06561 Therapeutic Procedure, Each 15 M inutes Completed 01/06/2020 51841 Physical Therapy Eval - Low Comp lexity Completed 11/28/2019 66094 Apply Cast Short Leg Completed 11/21/2019 72502 Apply Cast Short Leg Completed 11/13/2019 46271 Tenolysis Flexor Or Extensor Ten don Leg Or Ankle Completed 11/13/2019 82595 Repair Flexor Tendon Leg Primary W/O Graft Completed 11/13/2019 89483 Repair Flexor Tendon Leg Primary W/O Graft Completed Medical Devices Description No Information Available Encounters Type Date Location Provider Dx Diagnosis Office Visit 05/07/2020 1:30p [place] Edison Alcantar, P.A. M25.562 Pain in left knee Office Visit 04/30/2020 2:30p [place] Desire Mejia PA-C M1 7.12 Unilateral primary osteoarthritis, left knee Office Visit 12/26/2019 1:45p [place] MD S86. 312D Strain musc/tend peroneal grp at low leg lev, left leg, subs Assessments Date Code Description Provider 05/07/2020 M25.562 Pain in left knee Edison [...] Unilateral primary osteoarthriti s, left knee Ada Phil Riojas PA-C 01/27/2020 S86.312D Strain of muscle(s) and tendon(s) of peroneal muscle group at lower leg level, left leg, subsequent encounter Nyasia Hargrove, GENERAL SERVICE TECHNICIAN 01/24/2020 S86.312D Strain of muscle(s) and tendon(s) of peroneal muscle group at lower leg level, left leg, subsequent encounter Nyasia Hargrove, GENERAL SERVICE TECHNICIAN 01/22/2020 S86.312D Strain of muscle(s) and tendon(s) [...] level, left leg, subsequent encounter Nyasia Hargrove, GENERAL SERVICE TECHNICIAN 01/10/2020 S86.312D Strain of muscle(s) and tendon(s) [...] left leg, subsequent encounter Gwen Gardner MD 11/28/2019 S86.312D Strain of muscle(s) and tendon(s) of peroneal muscle group at lower leg level, left leg, subsequent encounter Gwen Gardner MD 11/21/2019 S86.312D Strain of muscle(s) and tendon(s) of peroneal muscle group at lower leg level, left leg, subsequent encounter Gwen Gardner MD 11/13/2019 S86.312A Strain of muscle(s) and tendon(s) of peroneal muscle group at lower leg level, left leg, initial encounter Desire Mejia PA-C 11/13/2019 S86.312A Strain of muscle(s) and tendon(s) of peroneal muscle group at lower leg level, left leg, initial encounter Gwen Gardner MD 11/13/2019 X50.9xxA Other and unspecifie d overexertion or strenuous movements or postures, initial encounter Desire Mejia PA-C 11/13/2019 X50.9xxA Other and unspecifie d overexertion or strenuous movements or postures, initial encounter Gwen Gardner MD 11/13/[address] or not applica juan Mejia PA-C 11/13/[address] or not applica juan Gardner MD Plan of Treatment 05/07/2020 - Edison Alcantar, P.A.* M25.562 Pain in left knee* New Xrays:* MRI LT Knee, Ordered: 05/07/20 * Follow up:* after lt knee mri for results with [facility] Functional Status Description No Information Available Mental Status Description No Information Available Referrals Refer to Dr Reason for Referral Status Appt Date Yareli Fernandez PA-C MRI APPROVED PER [facility] FOR MRI LEFT KNEE (86522) TO X-RAY. DG Created [address] [place] [address] [place] [id number] [phone] [place] [phone] e valuation. Patient going here, passed to PT Dept. AC Closed [address] [place] [address] [place] [address] [phone]
--- OUTSIDE RECORDS SUMMARY | 2020-07-01 11:08 | CCD | Continuity of Care Document ---
Author Author Alecia ALCANTAR P.A. Organization Unknown Address [address] [address] Phone [phone] Care Team Providers Care Network Admin Name Role Phone Maria Eugenia Wheeler THERAPEUTIC RECREATION ASSISTANT AUTM [phone] AlexAnne moore BALANCING MACHINE SET UP WORKER AUTM [phone] Problems Description No Information Available Social History [...] 11/28/2019 12:59pm Body Temperature 96.0 F Results Test Acquired Date Facility Test Result H/L Range Note Coronavirus 2019 Nasopharygeal 11/10/[address] [address] (315)- - Coronavirus 2019 Nasopharygeal This test was de <SEE NOTE> 1 1 This test was developed and its performance characteristics determined by [facility]. This test has not been FDA cleared or approved. This test has been authorized by FDA under an Emergency Use Authorization (EUA). This test is only authorized for the duration of time the declaration that circumstances exist justifying the authorization of the emergency use of in vitro diagnostic tests for detection of SARS-CoV-2 virus and/or diagnosis of COVID-19 infection under section 564(b)(1) of the Act, 21 U.S.C. 360bbb-3(b)(1), unless the authorization is terminated or revoked sooner. When diagnostic testing is negative, the possibility of a false negative result should be considered in the context of a patient's recent exposures and the presence of clinical signs and symptoms consistent with COVID-19. An individual without symptoms of COVID-19 and who is not shedding SARS-CoV-2 virus would expect to have a negative (not detected) result in this assay. Performed at: - [facility] [address] [id number] Engrosser: Brie Yates MD, Phone: [phone] Not Detected Procedures Date Code Description Status 05/07/2020 66341 X-Ray Knee Complete W/Obliques & Tunnel And/Or Standing Views Completed 02/07/2020 48526 Therapeutic Procedure, Each 15 M inutes Completed 02/03/2020 65671 Therapeutic Procedure, Each 15 M inutes Completed 01/28/2020 64216 Inject/Drain Joint/Bursa Major C ompleted 01/27/2020 56420 Therapeutic Procedure, Each 15 M inutes Completed 01/24/2020 28358 Therapeutic Procedure, Each 15 M inutes Completed 01/24/2020 63150 Hot Or Cold Packs Completed 01/22/2020 97071 Therapeutic Procedure, Each 15 M inutes Completed 01/17/2020 45278 Therapeutic Procedure, Each 15 M inutes Completed 01/13/2020 35225 Therapeutic Procedure, Each 15 M inutes Completed 01/10/2020 31732 Therapeutic Procedure, Each 15 M inutes Completed 01/06/2020 12786 Physical Therapy Eval - Low Comp lexity Completed 11/28/2019 64396 Apply Cast Short Leg Completed 11/21/2019 48689 Apply Cast Short Leg Completed 11/13/2019 52358 Tenolysis Flexor Or Extensor Ten don Leg Or Ankle Completed 11/13/2019 63662 Repair Flexor Tendon Leg Primary W/O Graft Completed 11/13/2019 89797 Repair Flexor Tendon Leg Primary W/O Graft Completed Medical Devices Description No Information Available Encounters Type Date Location Provider Dx Diagnosis Office Visit 04/30/2020 2:30p [place] Desire Mejia PA-C S8 6.312D Strain musc/tend peroneal grp at low leg lev, left leg, subs Office Visit 12/26/2019 1:45p [place] Gwen Gardner MD S86. 312D Strain musc/tend peroneal grp at low leg lev, left leg, subs Assessments Date Code Description Provider 05/07/2020 M22.42 Chondromalacia patellae, left kn ee Ever Ramos 04/30/2020 S86.312D Strain of muscle(s) and tendon(s) of peroneal muscle group at lower leg level, left leg, subsequent encounter Desire Mejia PA-C 03/17/2020 S86.312D Strain of [...] level, left leg, subsequent encounter Nyasia Hargrove, GRANULATOR 02/03/2020 S86.312D Strain of muscle(s) and tendon(s) [...] level, left leg, subsequent encounter Nyasia Hargrove, GRANULATOR 01/24/2020 S86.312D Strain of muscle(s) and tendon(s) of peroneal muscle group at lower leg level, left leg, subsequent encounter Nyasia Hargrove, GRANULATOR 01/22/2020 S86.312D Strain of muscle(s) and tendon(s) of peroneal muscle group at lower leg level, left leg, subsequent encounter Monique López P.T.A. 01/17/2020 S86.312D Strain of muscle(s) and tendon(s) of peroneal muscle group at lower leg level, left leg, subsequent encounter Ajit Ricardo, PT, DPT 01/13/2020 S86.312D Strain of muscle(s) and tendon(s) of peroneal muscle group at lower leg level, left leg, subsequent encounter Nyasia Delvin, GRANULATOR 01/10/2020 S86.312D Strain of muscle(s) and tendon(s) of peroneal muscle group at lower leg level, left leg, subsequent encounter Ajit Ricardo, PT, DPT 01/06/2020 S86.312D Strain of muscle(s) and tendon(s) of peroneal muscle group at lower leg level, left leg, subsequent encounter Ajit Ricardo, PT, DPT 12/26/2019 S86.312D Strain of muscle(s) [...] of Treatment 05/07/2020 - Edison Alcantar, P.A.* M22.42 Chondromalacia patellae, left knee* New Xrays:* MRI LT Knee, Ordered: 05/07/20 * Follow up:* after lt knee mri for results with [facility] Functional Status Description No Information Available Mental Status Description No Information Available Referrals Refer to Reason for Referral Status Appt Date [place] [phone] e valuation. Patient going here, passed to PT Dept. AC Closed [facility] [address] [place] [address] [phone]
--- OUTSIDE RECORDS SUMMARY | 2020-07-01 11:08 | CCD ---
Author Author [facility] Organization [facility] Address Unknown Phone Unavailable Care Team Providers Care License Distributor Name Role Phone Yuliya Mcelroy LOOM INSPECTOR Unavailable Unavailable Yuliya Mcelroyandra LOOM INSPECTOR Unavailable Unavailable Navi A Masha LOOM INSPECTOR Unavailable Unavailable Yuliya Mcelroy Masha LOOM INSPECTOR Unavailable Unavailable Navi A Masha LOOM INSPECTOR Unavailable Unavailable Navi, A Masha LOOM INSPECTOR Unavailable Unavailable Mulberry, A Masha LOOM INSPECTOR Unavailable Unavailable Mulberry, A Masha LOOM INSPECTOR Unavailable Unavailable Mulberry, A Masha LOOM INSPECTOR Unavailable Unavailable Mulberry, A Masha LOOM INSPECTOR Unavailable Unavailable Navi, A Masha LOOM INSPECTOR Unavailable Unavailable Navi, A Masha LOOM INSPECTOR Unavailable Unavailable Navi, A Masha LOOM INSPECTOR Unavailable Unavailable Navi, A Masha LOOM INSPECTOR Unavailable Unavailable Mulberry, A Masha LOOM INSPECTOR Unavailable Unavailable Mulberry, A Masha LOOM INSPECTOR Unavailable Unavailable Mulberry, A Masha LOOM INSPECTOR Unavailable Unavailable Mulberry, A Masha LOOM INSPECTOR Unavailable Unavailable Mulberry, A Masha LOOM INSPECTOR Unavailable Unavailable Mulberry, A Masha LOOM INSPECTOR Unavailable Unavailable Mulberry, A Masha LOOM INSPECTOR Unavailable Unavailable Mulberry, A Masha LOOM INSPECTOR Unavailable Unavailable Mulberry, A Masha LOOM INSPECTOR Unavailable Unavailable Navi, A Masha LOOM INSPECTOR Unavailable Unavailable Navi, A Masha LOOM INSPECTOR Unavailable Unavailable Navi, A Masha LOOM INSPECTOR Unavailable Unavailable Navi, A Masha LOOM INSPECTOR Unavailable Unavailable MCELHERAN, KYLEIGH PA Unavailable Unavailable MCELHERAN, KYLEIGH PA Unavailable Unavailable MCELHERAN, KYLEIGH PA Unavailable Unavailable MCELHERAN, KYLEIGH PA Unavailable Unavailable MCELHERAN, KYLEIGH PA Unavailable Unavailable MCELHERAN, KYLEIGH PA Unavailable Unavailable MCELHERAN, KYLEIGH PA Unavailable Unavailable MCELHERAN, KYLEIGH PA Unavailable Unavailable MCELHERAN, KYLEIGH PA Unavailable Unavailable MCELHERAN, KYLEIGH PA Unavailable Unavailable MCELHERAN, KYLEIGH PA Unavailable Unavailable MCELHERAN, KYLEIGH PA Unavailable Unavailable MCELHERAN, KYLEIGH PA Unavailable Unavailable MCELHERAN, KYLEIGH PA Unavailable Unavailable MCELHERAN, KYLEIGH PA Unavailable Unavailable MCELHERAN, KYLEIGH PA Unavailable Unavailable MCELHERAN, KYLEIGH PA Unavailable Unavailable MCELHERAN, KYLEIGH PA Unavailable Unavailable MCELHERAN, KYLEIGH PA Unavailable Unavailable MCELHERAN, KYLEIGH PA Unavailable Unavailable MCELHERAN, KYLEIGH PA Unavailable Unavailable MCELHERAN, KYLEIGH PA Unavailable Unavailable MCELHERAN, KYLEIGH PA Unavailable Unavailable MCELHERAN, KYLEIGH PA Unavailable Unavailable MCELHERAN, KYLEIGH PA Unavailable Unavailable MCELHERAN, KYLEIGH PA Unavailable Unavailable MCELHERAN, KYLEIGH PA Unavailable Unavailable MCELHERAN, KYLEIGH PA Unavailable Unavailable Trickey, J Radha PA Unavailable Unavailable Trickey, J Radha PA Unavailable Unavailable Trickey, J Radha PA Unavailable Unavailable Trickey, J Radha PA Unavailable Unavailable Trickey, J Radha PA Unavailable Unavailable Trickey, J Radha PA Unavailable Unavailable Trickey, J Radha PA Unavailable Unavailable Trickey, J Radha PA Unavailable Unavailable Trickey, J Radha PA Unavailable Unavailable Trickey, J Radha PA Unavailable Unavailable Trickey, J Radha PA Unavailable Unavailable Trickey, J Radha PA Unavailable Unavailable Trickey, J Radha PA Unavailable Unavailable Trickey, J Radha PA Unavailable Unavailable Trickey, J Radha PA Unavailable Unavailable Trickey, J Radha PA Unavailable Unavailable Trickey, J Radha PA Unavailable Unavailable Trickey, J Radha PA Unavailable Unavailable Trickey, J Radha PA Unavailable Unavailable Trickey, J Radha PA Unavailable Unavailable Trickey, J Radha PA Unavailable Unavailable Trickey, J Radha PA Unavailable Unavailable Trickey, J Radha PA Unavailable Unavailable Trickey, J Radha PA Unavailable Unavailable Trickey, J Radha PA Unavailable Unavailable Trickey, J Radha PA Unavailable Unavailable Trickey, J Radha PA Unavailable Unavailable Trickey, J Radha PA Unavailable Unavailable Trickey, J Radha PA Unavailable Unavailable Trickey, J Radha PA Unavailable Unavailable Trickey, J Radha PA Unavailable Unavailable Trickey, J Radha PA Unavailable Unavailable Trickey, J Radha PA Unavailable Unavailable Trickey, J Radha PA Unavailable Unavailable Trickey, J Radha PA Unavailable Unavailable Trickey, J Radha PA Unavailable Unavailable Trickey, J Radha PA Unavailable Unavailable Trickey, J Radha PA Unavailable Unavailable Trickey, J Radha PA Unavailable Unavailable Trickey, J Radha PA Unavailable Unavailable Trickey, J Radha PA Unavailable Unavailable Trickey, J Radha PA Unavailable Unavailable Trickey, J Radha PA Unavailable Unavailable Trickey, J Radha PA Unavailable Unavailable Trickey, J Radha PA Unavailable Unavailable Trickey, J Radha PA Unavailable Unavailable Trickey, J Radha PA Unavailable Unavailable Trickey, J Radha PA Unavailable Unavailable Trickey, J Radha PA Unavailable Unavailable Trickey, J Radha PA Unavailable Unavailable Trickey, J Radha PA Unavailable Unavailable Trickey, J Radha PA Unavailable Unavailable Sameera Mejia PA Unavailable Unavailable Sameera Mejia PA Unavailable Unavailable Sameera Mejia PA Unavailable Unavailable Sameera Mejia PA Unavailable Unavailable Sameera Mejia PA Unavailable Unavailable Sameera Mejia PA Unavailable Unavailable Sameera Mejia PA Unavailable Unavailable Mejia, M Barratt PA Unavailable Unavailable Mejia, M Barratt PA Unavailable Unavailable Mejia, M Barratt PA Unavailable Unavailable Mejia, M Barratt PA Unavailable Unavailable Mejia, M Barratt PA Unavailable Unavailable Mejia, M Barratt PA Unavailable Unavailable Mejia, M Barratt PA Unavailable Unavailable Mejia, M Barratt PA Unavailable Unavailable Mejia, M Barratt PA Unavailable Unavailable Mejia, M Barratt PA Unavailable Unavailable Mejia, M Barratt PA Unavailable Unavailable Mejia, M Barratt PA Unavailable Unavailable Mejia, M Barratt PA Unavailable Unavailable Mejia, M Barratt PA Unavailable Unavailable Mejia, M Barratt PA Unavailable Unavailable Mejia, M Barratt PA Unavailable Unavailable Mejia, M Barratt PA Unavailable Unavailable Mejia, M Barratt PA Unavailable Unavailable Mejia, M Barratt PA Unavailable Unavailable Masha Mcelroy LOOM INSPECTOR LOOM INSPECTOR Unavailable Unavailable SOLEDAD PATRICK MD Unavailable Unavailable SOLEDAD PATRICK MD Unavailable Unavailable SOLEDAD PATRICK MD Unavailable Unavailable SOLEDAD PATRICK MD Unavailable Unavailable SOLEDAD PATRICK MD Unavailable Unavailable SOLEDAD PATRICK MD Unavailable Unavailable SOLEDAD PATRICK MD Unavailable Unavailable SOLEDAD PATRICK MD Unavailable Unavailable SOLEDAD PATRICK MD Unavailable Unavailable SOLEDAD PATRICK MD Unavailable Unavailable SOLEDAD PATRICK MD Unavailable Unavailable SOLEDAD PATRICK MD Unavailable Unavailable SOLEDAD PATRICK MD Unavailable Unavailable SOLEDAD PATRICK MD Unavailable Unavailable SOLEDAD PATRICK MD Unavailable Unavailable SOLEDAD PATRICK MD Unavailable Unavailable SOLEDAD PATRICK MD Unavailable Unavailable SOLEDAD PATRICK MD Unavailable Unavailable SOLEDAD PATRICK MD Unavailable Unavailable SOLEDAD PATRICK MD Unavailable Unavailable SOLEDAD PATRICK MD Unavailable Unavailable SOLEDAD PATRICK MD Unavailable Unavailable SOLEDAD PATRICK MD Unavailable Unavailable SOLEDAD PATRICK MD Unavailable Unavailable SOLEDAD PATRICK MD Unavailable Unavailable SOLEDAD PATRICK MD Unavailable Unavailable PATRICKSOLEDAD JUNG MD Unavailable Unavailable PATRICKSOLEDAD JUNG MD Unavailable Unavailable SOLEDAD PATRICK MD Unavailable Unavailable SOLEDAD PATRICK MD Unavailable Unavailable LETTIERE, A KYLEIGH PA Unavailable Unavailable LETTIERE, A KYLEIGH PA Unavailable Unavailable LETTIERE, A KYLEIGH PA Unavailable Unavailable LETTIERE, A KYLEIGH PA Unavailable Unavailable LETTIERE, A KYLEIGH PA Unavailable Unavailable LETTIERE, A KYLEIGH PA Unavailable Unavailable LETTIERE, A KYLEIGH PA Unavailable Unavailable LETTIERE, A KYLEIGH PA Unavailable Unavailable LETTIERE, A KYLEIGH PA Unavailable Unavailable LETTIERE, A KYLEIGH PA Unavailable Unavailable LETTIERE, A KYLEIGH PA Unavailable Unavailable LETTIERE, A KYLEIGH PA Unavailable Unavailable LETTIERE, A KYLEIGH PA Unavailable Unavailable LETTIERE, A KYLEIGH PA Unavailable Unavailable LETTIERE, A KYLEIGH PA Unavailable Unavailable LETTIERE, A KYLEIGH PA Unavailable Unavailable LETTIERE, A KYLEIGH PA Unavailable Unavailable LETTIERE, A KYLEIGH PA Unavailable Unavailable LETTIERE, A KYLEIGH PA Unavailable Unavailable LETTIERE, A KYLEIGH PA Unavailable Unavailable LETTIERE, A KYLEIGH PA Unavailable Unavailable LETTIERE, A KYLEIGH PA Unavailable Unavailable LETTIERE, A KYLEIGH PA Unavailable Unavailable LETTIERE, A KYLEIGH PA Unavailable Unavailable LETTIERE, A KYLEIGH PA Unavailable Unavailable LETTIERE, A KYLEIGH PA Unavailable Unavailable LETTIERE, A KYLEIGH PA Unavailable Unavailable LETTIERE, A KYLEIGH PA Unavailable Unavailable LETTIERE, A KYLEIHG PA Unavailable Unavailable Re-disclosure Warning The records that you are about to access may contain information from federally-assisted alcohol or drug abuse programs. If such information is present, then the following federally mandated warning applies: This information has been disclosed to you from records protected by federal confidentiality rules (42 CFR part 2). The federal rules prohibit you from making any further disclosure of this information unless further disclosure is expressly permitted by the written consent of the person to whom it pertains or as otherwise permitted by 42 CFR part 2. A general authorization for the release of medical or other information is NOT sufficient for this purpose. The Federal rules restrict any use of the information to criminally investigate or prosecute any alcohol or drug abuse patient.The records that you are about to access may contain highly sensitive health information, the redisclosure of which is protected by Article 27-F of the [facility] Public Health law. If you continue you may have access to information: Regarding HIV / AIDS; Provided by facilities licensed or operated by the [facility] Office of Mental Health; or Provided by the [facility] Office for People With Developmental Disabilities. If such information is present, then the following [facility] mandated warning applies: This information has been disclosed to you from confidential records which are protected by state law. State law prohibits you from making any further disclosure of this information without the specific written consent of the person to whom it pertains, or as otherwise permitted by law. Any unauthorized further disclosure in violation of state law may result in a fine or skilled nursing sentence or both. A general authorization for the release of medical or other information is NOT sufficient authorization for further disc losure. Family History Family Member Name Family Member Gender Family Member Status Date o f Status Description Data Source(s) Unknown Unknown Problem [facility] ([facility] Unknown Female Problem [facility] ([facility]) Unknown Unknown Problem [facility] ([facility] mother Encounters Encounter Providers Location Date Indications Data Source(s ) Outpatient Attender: KYLEIGH Peres cristhian 06/24/2020 02:35:00 PM EST [facility] ([facility] Outpatient Attender: Radha VILLA Main office - [facility] 05/25/2020 07:15:00 AM EST [facility] ([facility]) Outpatient Attender: KYLEIGH VILLA Physical Therapy 05/07/2020 12:30:00 PM EST [facility] ([facility]) Outpatient Attender: Desire VILLA Physical Therapy 01:30:00 PM EST [facility] ([facility]) Outpatient Attender: Masha SAHNI 04/04/2020 08:4 7:[address] [facility] Outpatient Attender: KAITLYN SAHNI 03/08/2020 02:37:[address] [facility] Outpatient Attender: Masha SAHNI 03/08/2020 02:3 7:[address] [facility] Outpatient Attender: Masha PRO 02/03/2020 08:1 2:[address] [facility] Outpatient Attender: Masha SAHNI 12/31/2019 09:3 0:[address] [facility] Office Visit Attender: SOLEDAD PATRICK MD Physical Therapy 01:45:00 PM EDT [facility] ([facility]) Outpatient Attender: Radha VILLA Main office - [facility] 12/10/2019 12:00:00 PM EDT [facility] ([facility]) Outpatient Attender: Masha SAHNI 11/12/2019 03:3 1:[address] [facility] Outpatient Attender: Masha Mcelroy [facility] 11/09/2019 10:1 7:[address] [facility] Outpatient Attender: KAITLYN Mcelroy [facility] 10/30/2019 01:41:[address] [facility] Outpatient Attender: KAITLYN Mcelroy [facility] 10/05/2019 06:40:[address] [facility] Outpatient Attender: Masha Mcelroy [facility] 10/05/2019 06:3 9:[address] [facility] Outpatient Attender: KAITLYN Mcelroy [facility] 10/01/2019 01:17:[address] [facility] Outpatient Attender: KAITLYN Mcelroy [facility] 10/01/2019 01:16:[address] [facility] Outpatient Attender: KAITLYN Mcelroy [facility] 10/01/2019 01:13:[address] [facility] Outpatient Attender: KAITLYN Mcelroy [facility] 09/06/2019 02:49:[address] [facility] Outpatient Attender: Masha Mcelroy [facility] 09/01/2019 12:1 7:[address] [facility] Outpatient Attender: Radha VILLA Main office [facility] 08/09/2019 10:45:00 AM EST [facility] ([facility]) Outpatient Attender: Masha Mcelroy [facility] 06/09/2019 11:2 7:02 PM [facility] Outpatient Attender: Masha Mcelroy [facility] 05/08/2019 09:0 7:01 PM [facility] Outpatient Attender: KAITLYN Mcelroy [facility] 05/06/2019 03:46:03 P M [facility] Outpatient Attender: KAITLYN Mcelroy [facility] 05/06/2019 02:12:02 P M [facility] Medications Medication Brand Name Start Date Product Form Dose Route Admi nistrative Instructions Pharmacy Instructions Status Indications Reaction Description Data Source(s) Methocarbamol 500 MG Oral Tablet Methocarbamol 05/25/2020 12:00:00 AM EST ORAL active [facility] ([facility]) 20 mg 03/09/2020 12:00:00 AM EDT tablet 10 TAKE TWO TABLETS BY MOUTH EVERY DAY FOR 5 DAYS TAKE TWO TABLETS BY MOUTH EVERY DAY FOR 5 DAYS SOLD: 020 [facility] Oxycodone Hydrochloride 5 MG Oral Tablet Oxycodone HCL 11/08/2019 12:00:00 AM EDT ORAL active [facility] ([facility]) Oxycodone Hydrochloride 5 MG Oral Tablet Oxycodone HCL 09/02/2019 12:00:00 AM EDT ORAL completed [facility] ([facility]) 100 mg 05/20/2019 12:00:00 AM EST capsule 14 TAKE ONE CAPSULE TWO TIMES A DAY FOR SEVEN DAYS TAKE ONE CAPSULE TWO TIMES A DAY FOR SEVEN DAYS SOLD: 05/20/2019 [facility] gabapentin 300 MG Oral Capsule Gabapentin 04/18/2019 12:00:00 AM EDT ORAL completed [facility] ([facility]) Insurance Providers Payer name Policy type / Coverage type Policy ID Covered alliance party ID Covered alliance party's relationship to sanchez Policy Sanchez Plan Information [facility] COMMUNITY PLAN [facility] [id number] SP [id number] [facility] O [id number] S [id number] [facility] COMMUNITY PLAN [facility] [id number] SP [id number] Managed Care - [facility] Community Plan P [id number] S [id number] Medicaid S [id number] S [id number] Managed Care - [facility] Community Plan P [id number] S [id number] Medicaid S [id number] S [id number] Managed Care - Community Plan [facility] P [id number] S [id number] Medicaid S [id number] S [id number] [facility] Community Plan Commercial [id number] Self [id number] [facility] Health Maintenance Organization (HMO) [id number] Self [id number] [facility] Community Plan Commercial [id number] Self [id number] [facility] Community Plan Commercial [id number] Self [id number] [facility] Community Plan Commercial [id number] Self [id number] [facility] Community Plan Commercial [id number] Self [id number] [facility] Community Plan Commercial [id number] Self [id number] [facility] Health Maintenance Organization (HMO) [id number] Self [id number] [facility] Community Plan Commercial [id number] Self [id number] Community Plan - [facility] Commercial [id number] Self [id number] Managed Care - Community Plan [facility] P [id number] S [id number] [facility] Community Plan Commercial [id number] Self [id number] [facility] Community Plan Commercial [id number] Self [id number] [facility] Community Plan Commercial [id number] Self [id number] [facility] Community [id number] Preferred Provider Organization (PPO) [id number] [facility] Community Plan Commercial [id number] Self [id number] [facility] Community Plan Commercial [id number] Self [id number] [facility] Health Maintenance Organization (HMO) [id number] Self [id number] [facility] Community Plan Commercial [id number] Self [id number] [facility] Community Plan Commercial [id number] Self [id number] [facility] Community Plan Commercial [id number] Self [id number] [facility] Community Plan Commercial [id number] Self [id number] [facility] Community Plan Commercial [id number] Self [id number] [facility] Community Plan Commercial [id number] Self [id number] UN COMMUNITY PLAN MCDHMO [id number] SP [id number] [facility] Community Plan Commercial [id number] Self [id number] [facility] Health Maintenance Organization (HMO) [id number] Self [id number] [facility] Community Plan Commercial [id number] Self [id number] Managed Care - Community Plan [employer] P [id number] S [id number] [facility] Community Plan Commercial [id number] Self [id number] UN COMMUNITY PLAN MCDHMO [id number] SP [id number] Medicaid S [id number] S [id number] [facility] Community Plan Commercial [id number] Self [id number] Managed Care - Community Plan [employer] P [id number] S [id number] UNHC COMMUNITY PLAN MCDHMO UNHC COMMUNITY PLAN MCDHMO Self [employer] [facility] COMMUNITY PLAN MCDHMO Community Plan - [facility] Commercial Self [facility] Health Maintenance Organization (HMO) Self Medicaid S [id number] S [id number] Managed Care - Community Plan [employer] P [id number] S [id number] Managed Care - Community Plan [facility] P [id number] S [id number] UNHC COMMUNITY PLAN MCDHMO [id number] SP [id number] Medicaid S [id number] S [id number] Managed Care - Community Plan [employer] P [id number] S [id number] Managed Care - Community Plan [facility] P [id number] S [id number] Managed Care BCBS O [id number] S [id number] Medicaid S [id number] S [id number] Managed Care - Community Plan [facility] P UNAVAILABLE S UNAVAILABLE MEDICAID [id number] SP [id number] [employer]UE [employer] MEYER PLAN [id number] SP [id number] [employer] BCBS P [id number] S [id number] MEDICAID [id number] SP [id number] SELF PAY UNAVAILABLE SP UNAVAILA BLE [id number] Problems, Conditions, and Diagnoses Code Display Name Description Problem Type Effective Dates Data Source(s) V70.0 Health Screening Health Screening 10/05/2019 06 :39:[address] [facility] 786.2 Cough Cough 05/06/2019 03:44:[address] [facility] Surgeries/Procedures Procedure Description Date Indications Data Source(s) MRI Lower Extremity Any Joint 06/03/2020 12:00:[address] [facility] ([facility] RADIOLOGIC EXAM KNEE COMPLETE 4/MORE VIEWS 05/07/2020 12:00:00 AM EST [facility] ([facility] ) THERAPEUTIC PX 1/> AREAS EACH 15 MIN EXERCISES 12:00:00 AM EDT [facility] ([facility]) THERAPEUTIC PX 1/> AREAS EACH 15 MIN EXERCISES 12:00:00 AM EDT [facility] ([facility]) ARTHROCENTESIS ASPIR&/INJECTION MAJOR JT/BURSA 12:00:00 AM EDT [facility] ([facility]) THERAPEUTIC PX 1/> AREAS EACH 15 MIN EXERCISES 12:00:00 AM EDT [facility] ([facility] APPLICATION MODALITY 1/> AREAS HOT/COLD PACKS 01/24/20 12:00:00 AM EDT [facility] ([facility]) THERAPEUTIC PX 1/> AREAS EACH 15 MIN EXERCISES 12:00:00 AM EDT [facility] ([facility]) THERAPEUTIC PX 1/> AREAS EACH 15 MIN EXERCISES 12:00:00 AM EDT [facility] ([facility]) THERAPEUTIC PX 1/> AREAS EACH 15 MIN EXERCISES 12:00:00 AM EDT [facility] ([facility] THERAPEUTIC PX 1/> AREAS EACH 15 MIN EXERCISES 12:00:00 AM EDT [facility] ([facility]) THERAPEUTIC PX 1/> AREAS EACH 15 MIN EXERCISES 12:00:00 AM EDT [facility] ([facility]) Physical Therapy Eval - Low Complexity 01/06/2020 12:0 0:00 AM EDT [facility] ([facility]) APPLICATION SHORT LEG CAST BELOW KNEE-TOE 11/28/2019 1 2:00:00 AM EDT [facility] ([facility]) APPLICATION SHORT LEG CAST BELOW KNEE-TOE 11/21/2019 1 2:00:00 AM EDT [facility] ([facility]) Repair Flexor Tendon Leg Primary W/O Graft 11/13/2019 12:00:00 AM EDT [facility] ([facility]) Repair Flexor Tendon Leg Primary W/O Graft 11/13/2019 12:00:00 AM EDT [facility] ([facility]) Tenolysis Flexor Or Extensor Tendon Leg Or Ankle 11/12 12:00:00 AM EDT [facility] ([facility]) Tenolysis Flexor Or Extensor Tendon Leg Or Ankle 11/12 12:00:00 AM EDT [facility] ([facility]) MRI Lower Extremity Any Joint 08/06/2019 12:00:[address] [facility] ([facility]) RADEX ANKLE COMPLETE MINIMUM 3 VIEWS 07/11/2019 12:00: 00 AM EST [facility] ([facility]) ARTHROCENTESIS ASPIR&/INJECTION MAJOR JT/BURSA 12:00:00 AM EST [facility] ([facility]) Results ID Date Data Source [id number] 06/24/2020 12:00:00 AM EST [place] Name Value Range Interpretation Code Description Data Alisha rce(s) Supporting Document(s) SARS coronavirus 2 Ag Negative [facility] This lab was ordered by [facility] and reported by [facility]. ID Date Data Source [id number] 02/06/2020 10:20:[address] [facility] Name Value Range Interpretation Code Description Data Alisha rce(s) Supporting Document(s) HCT 42.2 % 36.0-47.[address] [facility] HGB 14.3 g/dL 12.0-15.[address] [facility] MCH 33.9 G/DL pg 32.0-36.5 N [facility] MCHC 32.1 PG % 27.0-33.[address] [facility] PLATELETS 314 10 10*3/mm3 150-[address] [facility] RBC 4.46 10 10*6/mm3 4.00-5.[address] [facility] RDW 12.4 % 11.5-14.[address] [facility] WBC TOTAL 6.3 4.0-10.[address] [facility] ID Date Data Source [id number] 02/06/2020 10:20:[address] [facility] Name Value Range Interpretation Code Description Data Alisha rce(s) Supporting Document(s) BG FASTING 87 mg/dL 70-100 N [facility] ID Date Data Source [id number] 11/10/2019 10:30:00 AM EDT [facility] ([facility]) Name Value Range Interpretation Code Description Data Alisha rce(s) Supporting Document(s) Laboratory test finding (navigational concept) Laboratory test result [facility] ([facility]) This test was developed and its performa nce characteristics determined by [facility]. This test has not been FDA cleared [...] result in this assay. Performed at: - [facility] [id number] Redrying Machine Operator: Brie Yates MD, Phone: [phone] Not Detected ID Date Data Source [id number] 11/10/2019 12:00:00 AM EDT [facility] Name Value Range Interpretation Code Description Data Alisha rce(s) Supporting Document(s) SARS CORONAVIRUS 2 RNA [facility] This lab was ordered by [facility] and reported by [facility]. ID Date Data Source [id number] 10/01/2019 08:50:[address] [facility] Measurements & CalculationsHeight: 64.75 inches 164.47 cm 5 ft. 4.75 in.Weight: 190 pounds 86.36 kg Body Mass Index (BMI): 31.98BMI Interpretation: ObeseBody Surface Area (BSA): 1.93Weight Management Education Done (Nutrition/Physical Activity)Vital SignsTemperature: 98.4F oral Pulse Rate: 72 beats/minuteRespiratory Rate: 16 respirations/minuteBlood Pressure: 115/78 left arm sitting automaticO2 Saturation: 99% room airVital Signs performed by: Romero Sandhu MA, October 01, 2019 9:03 AMInitial Intake Information from: patientRoom #: 13Smoking, Tobacco, Vaping or Smoke Exposure StatusSmoke Status: former smokerTobacco Use: NoDo you vape? YesCessation advice given: YesWhat is in your device? nicotineFrequency: current every day vaperPassive Smoke Exposure: YesPassive Smoke Exposure comments: vaping Menstrual HistoryAny possibility of ? NoComments: 3 week pill Healthcare HistorySince your last office visit...Have you been admitted to the hospital? NoHave you been to an emergency room (ER) or urgent care clinic? No - last night for arm painHave you seen another healthcare provider? Yes - ortho, allergy dr, ENT, radha tricky Have you seen a dentist? Yes - jeffersonIntake performed by: Romero Sandhu MA, October 01, 2019 8:55 AMRate Your HealthIn general, would you say your health is? Very GoodPain AssessmentAre you currently having any pain which... You would like your provider to address? No Affects your activity level? NoDepression Screening - PHQ-2Over the last two weeks, have you... Had little interest or pleasure in doing things? Not at all Been feeling down, depressed, or hopeless? Not at all PHQ- 2 Score: 0Anxiety Screening - FRANSISCA-2Over the last two weeks, have you been... Feeling nervous, anxious, or on edge? Not at all Unable to stop or control worrying? Not at all FRANSISCA-2 Score: 0Food InsecurityWithin the past year...Did you worry whether your food would run out before you got money to buy more? NoWas there a time when the food you bought didn't last and you didn't have money to get more? NoInfectious Disease / Travel ScreeningRecent travel for you or any close contacts? NoHave you had any close contact with anyone diagnosed with or under investigation for COVID-19 (coronavirus)? NoHave you had any of the following symptoms recently? Fever? NoRespiratory symptoms: cough, cold, congestion, shortness of breath, difficulty breathing? NoScreening, Brief Intervention, & Referral to Treatment (SBIRT)Pre-Screening Questions How many times have you have 4 or more drinks in a day? 0How many times have you used an illegal drug or used a prescription medication for a non-medical reason? 0Performed by: Romero Sandhu MA, October 01, 2019 8:56 AMPatient History Medical History:B12 DeficiencyNasal polypsSurgical History:tubalNasal polyps removedFamily History:FH DiabetesFH HypertensionFH Kidney DiseaseFH Thyroid ProblemsFH Other CancerSocial/Personal History:Smoking History:Patient currently smokes every day.Patient has been counseled to quit. Chief Complaintmedication refills RM 13History of Present Illness (HPI)34 yr old female Pt here today for medication refill. Pt denies pain at this time. Pt state she is taking all medications with no side effects. Pt states needs her prozac refilled Pt states she has been out of Prozac since Monday09/27/2019. Pt states healthy diet and physical activities. HPI performed by: Masha SAHNI, October 01, 2019 9:42 AMTransitions of Care InboundProblem ReviewProblem List was reviewed and/or updated during this visit.Medication Reconciliation & ReviewMedication List was reviewed and/or updated during this visit, including review of any eubk-kle-bamnayt medications, herbal therapies, and/or supplements.Allergy ReviewAllergy List was reviewed and/or updated during this visit.Adult Preventive CareProvider Calculated and Reviewed all Clinical Protocols for patient today. Labs/Meds/Other Counseling-Nutrition and Physical Activity:BMI Interpretation: Obese (10/01/2019) Counseling: Done (10/01/2019) Physical Activity: Done (10/01/2019)Cancer Screening Pap Smear/HPV TestingReviewed: Previous Comments: a womens perspective in 05/03/2019 (05/06/2019)Today's Comments: PT has an appointment with womens perspective Review of Systems General: Denies loss of appetite, chills, dizziness, fatigue, fever, continued fever, headache, feeling ill, sweats, night sweats, sleep disturbances, weight loss. Eyes: Denies blurring of vision, double vision, irritation, discharge, vision loss, eye pain, eye swelling, droopy eyelid, sensitivity to light, redness, itching. Ears/Nose/Throat: Denies earache, ear discharge, ringing in ears, decreased hearing, nasal congestion, nosebleeds, runny nose, sore throat, hoarseness, difficulty swallowing, dry mouth, tooth pain, bleeding gums, swollen glands. Cardiovascular: Denies chest pain, palpitations, feeling faint, trouble breathing w/exertion, SOB upon lying down, SOB at night, peripheral edema, elevated blood pressure, decreased heart rate. Respiratory: Denies cough, difficulty breathing, shortness of breath, excessive sputum, coughing up blood, wheezing, chest pain. Gastrointestinal: Denies nausea, vomiting, diarrhea, constipation. Genitourinary: Denies urinary incontinence, pain with urination, burning with urination, urinary frequency, urinary hesitancy, urinary urgency, urinary urgency at night, incomplete emptying. Musculoskeletal: Denies back pain, joint pain, leg pain, joint swelling, body aches, muscle aches, muscle cramps, muscle weakness, stiffness, recent injury. Skin: Denies rash, hives, redness, itching, dryness, nail changes, suspicious lesions, athlete's foot, rash on palms, rash on bottom of feet. Neurologic: Denies muscle impairment, weakness, numbness/tingling, seizures, slurred speech, feeling faint, tremors, vertigo, paralysis on one side, paralysis on both sides. Psychiatric: Denies depression, anxiety, memory loss, mental disturbance, suicidal ideation, homicidal ideation, hallucinations, paranoia, feeling stressed, hearing voices. Endocrine: Denies cold intolerance, heat intolerance, excessive thirst, excessive hunger, excessive urination, weight loss, weight gain. Physical ExamGeneral Appearance: well nourished, well hydrated, no acute distressEyes, External: conjunctivae and lids normal, EOMIRespiratory, Auscultation: clear to auscultation bilaterally; no rales, rhonchi, or wheezesRespiratory, Effort: no intercostal retractions or use of accessory musclesCardiovascular, Auscultation: S1, S2 audible; no murmur, rub, or gallop; RRRPeripheral Circulation: no clubbing, cyanosis, edema, or varicositiesAbdomen: soft, non-tender, no masses, bowel sounds normalGait & Station: normalSkin, Inspection: no rashes, lesions, or ulcerationsOrientation: oriented to time, place, and personMood & Affect: no depression, anxiety, or agitationJudgment & Insight: intactCare Management Plan Transitions of CareInboundRate Your HealthIn general, would you say your health is? Very GoodAssessment & Plan Problems:Added: Health Screening (ICD-V70.0) (DKH32-O68.9) Assessment: Instructions: Fast labs ordered to be done prior to your next visit.Assessed:ASTHMA (ICD-493.90) (LLR86-K10.909) Assessment: Instructions: We have sent a refill of your singulair today. please try to avoid asthma triggers.FRANSISCA-generalized anxiety disorder (ICD-300.02) (SVK88-G73.1) Assessment: Instructions: please continue prozac as prescribed. Please continue to monitor report and avoid triggers causing increased anxiety.Allergic rhinitis (ICD-477.9) (GDM00-W79.9) Assessment: Instructions: Refilled LoratadinePatient Instructions/Care Plan: ASTHMA: We have sent a refill of your singulair today. please try to avoid asthma triggers.FRANSISCA-generalized anxiety disorder: please continue prozac as prescribed. Please continue to monitor report and avoid triggers causing increased anxiety.Allergic rhinitis: Refilled LoratadineHealth Screening: Fast labs ordered to be done prior to your next visit. Plan developed in collaboration with patient and/or familyMedications:GABAPENTIN 300 MG ORAL CAPSULEPROZAC 10 MG ORAL CAPSULENAPROXEN 500 MG ORAL TABLETREQUIP 2 MG ORAL TABLETNICORETTE 4 MG MOUTH/THROAT GUMFLONASE ALLERGY RELIEF 50 MCG/ACT NASAL SUSPENSIONSINGULAIR 10 MG ORAL TABLETBIRTH CONTROL PILL-NAME UNKNOWNCLARITIN 10 MG ORAL TABLETTOPAMAX 50 MG ORAL TABLETIBUPROFEN 800 MG ORAL TABLETVENTOLIN HFA 108 (90 Base) MCG/ACT INHALATION AEROSOL SOLUTIONMedication Changes:Refilled:PROZAC 10 MG ORAL CA PSULE-take one tablet by mouth daily Qty: 30[Capsule] Refills: 3 Method: ElectronicSINGULAIR 10 MG ORAL TABLET-1 tab by mouth every night at bedtime Qty: 30[Tablet] Refills: 2 Method: ElectronicFLONASE ALLERGY RELIEF 50 MCG/ACT NASAL SUSPENSION-one spray to each nostril twice daily as needed. Qty: 1[Container] Refills: 1 Method: ElectronicCLARITIN 10 MG ORAL TABLET-1 pill po daily Qty: 30[Tablet] Refills: 2 Method: ElectronicRemoved:VALACYCLOVIR HCL 1 GM ORAL TABLET-take two tablets by mouth every 12 hours x 1 day, HYDROXYZINE HCL 25 MG ORAL TABLET-Take one tablet by mouth three time daily as needed, GABAPENTIN 100 MG ORAL CAPSULE-take one tab po at bedtime dailyChanged:From: ORAL SINGULAIR 10 MG ORAL TABLET Qty: [id number] Refills: 30[Tablet] To: SINGULAIR 10 MG ORAL TABLET-1 tab by mouth every night at bedtime Qty: 30[Tablet] Refills: 2From: NASAL FLONASE 50 MCG/ACT NASAL SUSPENSION Qty: [id number] Refills: 1[Container] To: FLONASE ALLERGY RELIEF 50 MCG/ACT NASAL SUSPENSION-one spray to each nostril twice daily as needed. Qty: 1[Container] Refills: 1Allergies:BACTRIM (SULFAMETHOXAZOLE-TRIMETHOPRIM TABS) (Critical)SUDAFED (PSEUDOEPHEDRINE HCL TABS) (Severe)ZITHROMAX (AZITHROMYCIN PACK) (Severe)SULFA (Moderate)Orders:COMP METABOLIC PANEL [CPT-61465] CBC W/DIFF [CPT-63817] HgBA1c [CPT-25178] LIPID PANEL [CPT-79558] TSH [CPT-85400] T-4 free [CPT-30833] Vitamin D 250H Unspecified [CPT-19049] URINALYSIS [CPT-03928] Adult - Ofc Vst, EST, Level IV [CPT-46510] Follow-Up Return to clinic: 3-4 months for follow up Clinical Visit Summary CompletedMedications:CLARITIN 10 MG ORAL TABLET (LORATADINE) 1 pill po daily #30[Tablet] x 2 Entered and Authorized by: Masha SAHNI Method used: Electronically to [facility]* ([facility]) [address] [place] [address] RxID: [id number] ALLERGY RELIEF 50 MCG/ACT NASAL SUSPENSION (FLUTICASONE PROPIONATE) one spray to each nostril twice daily as needed. #1[Container] x 1 Route:NASAL Entered and Authorized by: Masha SAHNI Method used: Electronically to [facility]* ([facility]) [address] [place] [address] Note to Pharmacy: Route: NASAL; Indications: COUGH;SINUSITIS RxID: [id number] 10 MG ORAL TABLET (MONTELUKAST SODIUM) 1 tab by mouth every night at bedtime #30[Tablet] x 2 Route:ORAL Entered and Authorized by: Masha SAHNI Method used: Electronically to [facility]* (retail) [address] [place] [address] Note to Pharmacy: Route: ORAL; Indications: ASTHMA RxID: [id number] 10 MG ORAL CAPSULE (FLUOXETINE HCL) take one tablet by mouth daily #30[Capsule] x 3 Route:ORAL Entered and Authorized by: Masha SAHNI Method used: Electronically to [facility]* (retail) [address] [place] [address] Note to Pharmacy: Route: ORAL; Indications: ANXIETY DEPRESSION RxID: [id number] signed by Masha SAHNI on 10/05/2019 at 6:39 PM Name Value Range Interpretation Code Description Data Alisha rce(s) Supporting Document(s) ID Date Data Source [id number] 08/22/2019 12:52:00 PM EST [facility] ([facility]) Name Value Range Interpretation Code Description Data Alisha rce(s) Supporting Document(s) Laboratory test finding (navigational concept) <pending> [facility] ([facility]) ID Date Data Source [id number] 05/06/2019 02:48:37 PM EST [facility] Measurements & CalculationsHeight: 64.75 inches 164.47 cm 5 ft. 4.75 in.Weight: 188 pounds 85.45 kg Body Mass Index (BMI): 31.64BMI Interpretation: ObeseBody Surface Area (BSA): 1.92Vital SignsTemperature: 97.2FPulse Rate: 80 beats/minuteRespiratory Rate: 16 respirations/minuteBlood Pressure: 115/80 left arm sitting automaticO2 Saturation: 98% room airVital Signs performed by: Brandi Kan MA, May 06, 2019 2:54 PMAdult Questionnaire1) Does the patient have a long-term health problem with heart disease, lung disease, asthma, kidney disease, metabolic disease (e.g., diabetes), anemia, or other blood disorder? No2) Does the patient have allergies to medications, food, a vaccine component, or latex? No3) Does the patient have cancer, leukemia, AIDS, or any other immune system problem? No4) Does the patient live with or expect to have close contact with a person whose immune system is severely compromised and who must be in protective isolation (e.g., an isolation room of a bone marrow transplant unit)? No5) Does the patient take cortisone, prednisone, other steroids, or anticancer drugs, or has the patient had radiation treatments? No6) During the past year, has the patient received a transfusion of blood or blood products, or been given immune (gamma) globulin or an antiviral drug? No7) For women: Is the patient or is there a chance she could become during the next month? Yes8) Has the patient ever had a serious reaction to a vaccine in the past? No9) Has the patient had a seizure or a brain or other nervous system problem? No10) Has the patient received any vaccinations in the past 4 weeks? No11) Is the patient older than age 49 years? No12) Is the patient sick today? No13) Vaccine information given and explained to patient? YesVaccines Administered/Entered:Vaccination Group: InfluenzaSeries: 2Vaccination: Flulaval Quadrivalent Intramuscular Suspension Prefilled Syringe 0.5 MLMfr / Lot# / Exp.Date: [employer] / [id number] / 12/17/2019Amt. Given / Route / Site: 0.5 mL / IM / Left DeltoidNDC / CVX: [id number] / 150Administered Date: 05/06/2019 15:51VFC Eligibility: Not VFC EligibleVIS Date: 01/31/2019VIS Given / VIS Given On: Yes / 05/06/2019Comments: Administered by: Radha Junior Initial Intake Information from: patientRoom #: 8Infectious Disease- Travel Have you or your sexual partner travelled outside of the country recently? NoSmoking, Tobacco or Smoke Exposure StatusSmoke Status: current some day smokerTobacco Use: YesAdv to Quit: YesPassive Smoke Exposure: YesMenstrual HistoryLast Menstrual Period (LMP): 04/02/2019LMP History: ApproximateAny possibility of ? NoHealthcare HistorySince your last office visit...Have you been admitted to the hospital? NoHave you been to an emergency room (ER) or urgent care clinic? No - last night for arm painHave you seen another healthcare provider? Yes - ortho, allergy dr, ENT, radha moreno Have you seen a dentist? Yes - jeffersonIntake performed by: Brandi Kan MA, May 06, 2019 2:50 PMRate Your HealthIn general, would you say your health is? ExcellentPain AssessmentAre you currently having any pain which... You would like your provider to address? Yes Affects your activity level? YesDepression Screening - PHQ-2Over the last two weeks, have you... Had little interest or pleasure in doing things? Not at all Been feeling down, depressed, or hopeless? Not at all PHQ-2 Score: 0Anxiety Screening - FRANSISCA-2Over the last two weeks, have you been... Feeling nervous, anxious, or on edge? Not at all Unable to stop or control worrying? Not at all FRANSISCA-2 Score: 0Infectious Disease- Travel Cont. Any possibility of ? NoPain AssessmentPain ScaleNumeric Rating Scale: 8 / 10Location: kneeDuration: 2-3 daysFrequency: DailyCharacter/Quality: achingIs the pain radiating? NoScreening, Brief Intervention, & Referral to Treatment (SBIRT)Pre- Screening Questions How many times have you have 4 or more drinks in a day? 0How many times have you used an illegal drug or used a prescription medication for a non-medical reason? 0Performed by: Brandi Kan MA, May 06, 2019 2:51 PMPatient History Medical History:[id number] DeficiencyNasal polypsSurgical History:tubalNasal polyps removedFamily History:FH DiabetesFH HypertensionFH Kidney DiseaseFH Thyroid ProblemsFH Other CancerSocial/Personal History:Smoking History:Patient currently smokes every day.Patient has been counseled to quit. Smoking Status: current some day smokerAdvised to Quit/Tobacco Education: YesChief Complaintcold sores gone, cough 3 weeksHistory of Present Illness (HPI)33 year old female patient in today for follow up visit. Patient states cold sores are gone. patient states she has had a cough for about 3 weeks now.Pt [facility]. Pt states treated with tessolon perlse prednisone and ABX for her ear infection. Pt states prozac is working well . Pt states taking hydroxyzine as needed maybe once per week. Pt denies anxiety or depression at this time. HPI performed by: Masha SAHNI, May 06, 2019 3:28 PMTransitions of Care InboundProblem ReviewProblem List was reviewed and/or updated during this visit.Medication Reconciliation & ReviewMedication List was reviewed and/or updated during this visit, including review of any uate-nsg-dtgqdvk medications, herbal therapies, and/or supplements.Allergy ReviewAllergy List was reviewed and/or updated during this visit.Adult Preventive CareProvider Calculated and Reviewed all Clinical Protocols for patient today. Screening Tobacco Screening: Smoking Status: current some day smoker (05/06/2019) Advised to Quit: Yes (05/06/2019)Cancer Screening Pap Smear/HPV TestingReviewed: Previous Comments: a woman's perspective september 2018 (12/03/2018)Today's Comments: a womens perspective in 05/03/2019Review of Systems General: Denies loss of appetite, chills, dizziness, fatigue, fever, continued fever, headache, feeling ill, sweats, night sweats, sleep disturbances, weight loss. Eyes: Denies blurring of vision, double vision, irritation, discharge, vision loss, eye pain, eye swelling, droopy eyelid, sensitivity to light, redness, itching. Ears/Nose/Throat: Denies earache, ear discharge, ringing in ears, decreased hearing, nasal congestion, nosebleeds, runny nose, sore throat, hoarseness, difficulty swallowing, dry mouth, tooth pain, bleeding gums, swollen glands. Cardiovascular: Denies chest pain, palpitations, feeling faint, trouble breathing w/exertion, SOB upon lying down, SOB at night, peripheral edema, elevated blood pressure, decreased heart rate. Respiratory: Denies cough, difficulty breathing, shortness of breath, excessive sputum, coughing up blood, wheezing, chest pain. Gastrointestinal: Denies nausea, vomiting, bleeding, burning, itching, irritation, cramps, diarrhea, constipation. Genitourinary: Denies urinary incontinence, pain with urination, burning with urination, urinary frequency, urinary hesitancy, urinary urgency, urinary urgency at night, incomplete emptying, blood in urine, pelvic pain. Musculoskeletal: Denies back pain, joint pain, leg pain, joint swelling, body aches, muscle aches, muscle cramps, muscle weakness, stiffness, recent injury. Skin: Denies rash, hives, redness, itching, dryness, nail changes, suspicious lesions, athlete's foot, rash on palms, rash on bottom of feet. Neurologic: Denies muscle impairment, weakness, numbness/tingling, seizures, slurred speech, feeling faint, tremors, vertigo, paralysis on one side, paralysis on both sides. Psychiatric: Denies depression, anxiety, memory loss, mental disturbance, suicidal ideation, homicidal ideation, hallucinations, paranoia, feeling stressed, hearing voices. Endocrine: Denies cold intolerance, heat intolerance, excessive thirst, excessive hunger, excessive urination, weight loss, weight gain. Heme/Lymphatic: Denies abnormal bruising, bleeding, enlarged lymph nodes. Physical ExamGeneral Appearance: well nourished, well hydrated, no acute distressEyes, External: conjunctivae and lids normal, EOMIRespiratory, Auscultation: clear to auscultation bilaterally; no rales, rhonchi, or wheezesRespiratory, Effort: no intercostal retractions or use of accessory musclesCardiovascular, Auscultation: S1, S2 audible; no murmur, rub, or gallop; RRRPeripheral Circulation: no clubbing, cyanosis, edema, or varicositiesAbdomen: soft, non-tender, no masses, bowel sounds normalGait & Station: normalSkin, Inspection: no rashes, lesions, or ulcerationsOrientation: oriented to time, place, and personMood & Affect: no depression, anxiety, or agitationJudgment & Insight: intactCare Management Plan Transitions of CareInboundRate Your HealthIn general, would you say your health is? ExcellentAssessment & Plan Problems:Added: Cough (ICD-786.2) (QUQ60-S59) Assessment: Instructions: Please continue medication as prescribed. Please continue adequate hydration to include 6-8 glasses of water daily. Please try to maintain adequate rest.Assessed:O/E-herpes labialis-cold sore (ICD-054.9) (FEE38-R06.1) Assessment: resolved per patientLight cigarette smoker (EJC21-Z94.0) Assessment: quit smoking three months ago. Instructions: Congratulations on your smoking cessation. Please try not to resume smoking.ANXIETY DEPRESSION (ICD-300.4) (JDE82-E41.8) Assessment: We have refilled Prozac today. Pt states working well Instructions: Please continue medication as prescribed. Please continue to monitor and report triggers causing increased anxiety and or depression.Needs influenza immunization (ICD-V04.81) (VBT64-Q76.3) Assessment: Instructions: You have received your flu vaccine today. There may cait soreness at the injection site. Mplease report any adverse reactions.Assessment not SavedHYPERGLYCEMIA (LUE64-N89.9): Patient Instructions/Care Plan: Light cigarette smoker: Congratulations on your smoking cessation. Please try not to resume smoking.ANXIETY DEPRESSION: Please continue medication as prescribed. Please continue to monitor and report triggers causing increased anxiety and or depression.Needs influenza immunization: You have received your flu vaccine today. There may cait soreness at the injection site. Mplease report any adverse reactions.Cough: Please continue medication as prescribed. Please continue adequate hydration to include 6-8 glasses of water daily. Please try to maintain adequate rest. Plan developed in collaboration with patient and/or familyMedications:GABAPENTIN 300 MG ORAL CAPSULEPROZAC 10 MG ORAL CAPS ULEVALACYCLOVIR HCL 1 GM ORAL TABLETNAPROXEN 500 MG ORAL TABLETHYDROXYZINE HCL 25 MG ORAL TABLETREQUIP 2 MG ORAL TABLETNICORETTE 4 MG MOUTH/THROAT GUMGABAPENTIN 100 MG ORAL CAPSULEFLONASE 50 MCG/ACT NASAL SUSPENSIONSINGULAIR 10 MG ORAL TABLETBIRTH CONTROL PILL-NAME UNKNOWNCLARITIN 10 MG ORAL TABLETTOPAMAX 50 MG ORAL TABLETIBUPROFEN 800 MG ORAL TABLETVENTOLIN HFA 108 (90 Base) MCG/ACT INHALATION AEROSOL SOLUTIONMedication Changes:Added: GABAPENTIN 300 MG ORAL CAPSULERefilled:PROZAC 10 MG ORAL CAPSULE-take one tablet by mouth daily Qty: 30[Capsule] Refills: 3 Method: ElectronicAllergies:BACTRIM (Critical)SUDAFED (Severe)ZITHROMAX (Severe)SULFA (Moderate)Orders:[id number] - Immo Admin (over 19 yrs), 1st Vaccine [CPT-06052] Adult - Ofc Vst, EST, Level IV [CPT-35622] Follow- Up Return to clinic: 3-4 months for follow up Clinical Visit Summary CompletedMedications:PROZAC 10 MG ORAL CAPSULE (FLUOXETINE HCL) take one tablet by mouth daily #30[Capsule] x 3 Route:ORAL Entered and Authorized by: Marilou SAHNI Method used: Electronically to [facility]* (retail) [address] [place] [address] Note to Pharmacy: Route: ORAL; Indications: ANXIETY DEPRESSION RxID: [id number] signed by Masha SAHNI on 05/08/2019 at 9:06 PM Name Value Range Interpretation Code Description Data Alisha rce(s) Supporting Document(s) Procedure Vital Signs ID Date Data Source UNK Name Value Range Interpretation Code Description Data Source(s) Body weight 188.00 [lb_av] 188.00 [lb_av] MEDEN T ([facility], [facility]) Body temperature 96.2 [degF] 96.2 [degF] MEDENT ([facility]) Oxygen saturation in Arterial blood by Pulse oximetry 99 % 99 % MEDENT ([facility]) Respiratory rate 16 /min 16 /min MEDENT ( [facility]) Heart rate 72 /min 72 /min MEDENT ([facility], [facility]) Diastolic blood pressure 83 mm[Hg] 83 mm[Hg] MEDENT ([facility], [facility]) Systolic blood pressure 158 mm[Hg] 158 mm[Hg] M EDENT ([facility], [facility]) Body temperature 97.3 [degF] 97.3 [degF] MEDENT ([facility] ) Body temperature 96.0 [degF] 96.0 [degF] MEDENT ([facility]) Body weight 87.545 kg 87.545 kg MEDENT ([facility], ) Body mass index (BMI) [Ratio] 34.2 kg/m2 34.2 k g/m2 MEDENT ([facility]) Body weight 193.00 [lb_av] 193.00 [lb_av] MEDEN T ([facility]) Body height 63 [in_i] 63 [in_i] MEDENT ([facility], ) 5'3" Respiratory rate 16 /min 16 /min MEDENT ( [facility], ) Heart rate 80 /min 80 /min MEDENT ([facility], ) Diastolic blood pressure 80 mm[Hg] 80 mm[Hg] MEDENT ([facility], ) Systolic blood pressure 112 mm[Hg] 112 mm[Hg] M EDENT ([facility], ) Body mass index (BMI) [Ratio] 29.2 kg/m2 29.2 k g/m2 MEDENT ([facility] ) Body weight 162.00 [lb_av] 162.00 [lb_av] MEDEN T ([facility]) Body height 62.50 [in_i] 62.50 [in_i] MEDENT ([facility] ) 5'2.50" Body temperature 99.4 [degF] 99.4 [degF] MEDENT ([facility])
--- OUTSIDE RECORDS SUMMARY | 2020-07-01 11:08 | CCD | Continuity of Care Document ---
Author Author Alecia MEJIA PA-C Organization Unknown Address [address] [place] [address] Phone [phone] Care Team Providers Care Customer Response Representative Name Role Phone Maria Eugenia Wheeler FRONT WORKER [employer] [phone] AlexAnne moore HADOOP ARCHITECT [employer] [phone] Problems Description No Information Available Social History [...] Available Procedures Date Code Description Status 05/07/2020 76929 X-Ray Knee Complete W/Obliques & Tunnel And/Or Standing Views Completed 02/07/2020 60140 Therapeutic Procedure, Each 15 M inutes Completed 02/03/2020 34318 Therapeutic Procedure, Each 15 M inutes Completed 01/28/2020 05528 Inject/Drain Joint/Bursa Major C ompleted 01/27/2020 50492 Therapeutic Procedure, Each 15 M inutes Completed 01/24/2020 56836 Therapeutic Procedure, Each 15 M inutes Completed 01/24/2020 21438 Hot Or Cold Packs Completed 01/22/2020 88225 Therapeutic Procedure, Each 15 M inutes Completed 01/17/2020 14387 Therapeutic Procedure, Each 15 M inutes Completed 01/13/2020 56593 Therapeutic Procedure, Each 15 M inutes Completed 01/10/2020 54399 Therapeutic Procedure, Each 15 M inutes Completed 01/06/2020 34667 Physical Therapy Eval - Low Comp lexity Completed 11/28/2019 75091 Apply Cast Short Leg Completed 11/21/2019 00247 Apply Cast Short Leg Completed 11/13/2019 04975 Tenolysis Flexor Or Extensor Ten don Leg Or Ankle Completed 11/13/2019 59581 Repair Flexor Tendon Leg Primary W/O Graft Completed 11/13/2019 30340 Repair Flexor Tendon Leg Primary W/O Graft Completed Medical Devices Description No Information Available Encounters Type Date Location Provider Dx Diagnosis Office [place] 2[place] M1 7.12 Unilateral primary osteoarthritis, left knee Office Visit 12/26/2019 1:45p Kenny Gardner MD S86. 312D Strain musc/tend peroneal grp at low leg lev, left leg, subs Assessments Date Code Description Provider 05/07/2020 M25.562 Pain in left knee Edison avendano, PWard 04/30/2020 M17.12 Unilateral primary osteoarthriti s, left [...] Unilateral primary osteoarthriti s, left knee Ada EBrent Riojas PA-C 01/27/2020 S86.312D Strain of muscle(s) and tendon(s) of peroneal muscle group at lower leg level, left leg, subsequent encounter Nyasia Hargrove, [employer] CONTROLLER 01/24/2020 S86.312D Strain of muscle(s) and tendon(s) of peroneal muscle group at lower leg level, left leg, subsequent encounter Nyasiabri Hoppere, [employer] INTERCEPT CONTROLLER 01/22/2020 S86.312D Strain of muscle(s) and tendon(s) [...] lower leg level, left leg, subsequent encounter Nyasiabri Hoppere, AIR INTERCEPT CONTROLLER 01/10/2020 S86.312D Strain of muscle(s) and tendon(s) [...] 11/13/[address] or not applica ble Desire Mejia PA-C 11/13/[address] or not applica juan Gardner MD Plan of Treatment 05/07/2020 - Edison Alcantar, P.A.* M25.562 Pain in left knee* New Xrays:* MRI LT Knee, Ordered: 05/07/20 * Follow up:* after lt knee mri for results with [facility] Functional Status Description No Information Available Mental Status Description No Information Available Referrals Refer to Dr Reason for Referral Status Appt Date Yareli [place]Frnandez [place] [id number] [phone] e valuation. Patient going here, passed to PT Dept. AC Closed [address] [facility] [address] [place] [address] [phone]
[2020-07-01] MEDS ORDERED: IBUP-1114 PO (11:29)
--- OUTSIDE RECORDS SUMMARY | 2020-07-01 11:36 | CCD ---
Author Author [facility] Organization [facility] Address Unknown Phone Unavailable Care Team Providers Care Financial Director Name Role Phone Yuliya McelroyP Unavailable Unavailable Yuliya McelroyP Unavailable Unavailable Navi, A Masha ENGRAVER SET UP OPERATOR Unavailable Unavailable Navi, A Masha ENGRAVER SET UP OPERATOR Unavailable Unavailable Aledo, A Masha ENGRAVER SET UP OPERATOR Unavailable Unavailable Aledo, A Masha ENGRAVER SET UP OPERATOR Unavailable Unavailable Aledo, A Masha ENGRAVER SET UP OPERATOR Unavailable Unavailable Aledo, A Masha ENGRAVER SET UP OPERATOR Unavailable Unavailable Aledo, A Masha ENGRAVER SET UP OPERATOR Unavailable Unavailable Aledo, A Masha ENGRAVER SET UP OPERATOR Unavailable Unavailable Aledo, A Masha ENGRAVER SET UP OPERATOR Unavailable Unavailable Aledo, A Masha ENGRAVER SET UP OPERATOR Unavailable Unavailable Aledo, A Masha ENGRAVER SET UP OPERATOR Unavailable Unavailable Aledo, A Masha ENGRAVER SET UP OPERATOR Unavailable Unavailable Aledo, A Masha ENGRAVER SET UP OPERATOR Unavailable Unavailable Aledo, A Masha ENGRAVER SET UP OPERATOR Unavailable Unavailable Aledo, A Masha ENGRAVER SET UP OPERATOR Unavailable Unavailable Aledo, A Masha ENGRAVER SET UP OPERATOR Unavailable Unavailable Aledo, A Masha ENGRAVER SET UP OPERATOR Unavailable Unavailable Aledo, A Masha ENGRAVER SET UP OPERATOR Unavailable Unavailable Aledo, A Masha ENGRAVER SET UP OPERATOR Unavailable Unavailable Aledo, A Masha ENGRAVER SET UP OPERATOR Unavailable Unavailable Aledo, A Masha ENGRAVER SET UP OPERATOR Unavailable Unavailable Aledo, A Masha ENGRAVER SET UP OPERATOR Unavailable Unavailable Aledo, A Masah ENGRAVER SET UP OPERATOR Unavailable Unavailable Aledo, A Masha ENGRAVER SET UP OPERATOR Unavailable Unavailable Navi, A Masha ENGRAVER SET UP OPERATOR Unavailable Unavailable MCELHERAN, KYLEIGH PA Unavailable Unavailable [...] Unavailable Unavailable MCELHERAN, KYLEIGH PA Unavailable Unavailable Trickey J Radha PA Unavailable Unavailable Trickey, J [...] M Barratt PA Unavailable Unavailable Masha Mcelroy ENGRAVER SET UP OPERATOR ENGRAVER SET UP OPERATOR Unavailable Unavailable SOLEDAD PATRICK MD Unavailable Unavailable [...] Unavailable LETTIERE, A KYLEIGH PA Unavailable Unavailable Re-disclosure Warning The records [...] is protected by Article 27-F of the [facility] Public Health law. If you continue you may have access to information: Regarding HIV / AIDS; Provided by facilities licensed or operated by the [facility] Office of Mental Health; or Provided by the [facility] Office for People With Developmental Disabilities. If such information is present, then the following [facility] mandated warning applies: This information [...] law may result in a fine or shelter sentence or both. A general authorization for the release of medical or other information is NOT sufficient authorization for further disc losure. Family History Family Member Name Family Member Gender Family Member Status Date o f Status Description Data Source(s) Unknown Unknown Problem [facility] ([facility]) Unknown Female Problem [facility] ([facility]) Unknown Unknown Problem [facility] ([facility]) mother Encounters Encounter Providers Location Date Indications Data Source(s ) Outpatient Attender: KYLEIGH Sethi Prim cristhian 06/24/2020 02:35:00 PM EST [facility] ([facility] Outpatient Attender: Radha VILLA Main office - [facility] 05/25/2020 07:15:00 AM EST [facility] ([facility]) Outpatient Attender: KYLEIGH VILLA Physical Therapy 05/07/2020 12:30:00 PM EST [facility] ([facility]) Outpatient Attender: Desire VILLA Physical Therapy 01:30:00 PM EST [facility] ([facility]) Outpatient Attender: Masha SAHNI 04/04/2020 08:4 7:01 PM EDT [facility] Outpatient Attender: KAITLYN PRO 03/08/2020 02:37:01 P M EDT [facility] Outpatient Attender: Masha PRO 03/08/2020 02:3 7:01 PM EDT [facility] Outpatient Attender: Masha PRO 02/03/2020 08:1 2:00 AM EDT [facility] Outpatient Attender: Masha PRO 12/31/2019 09:3 0:59 PM EDT [facility] Office Visit Attender: SOLEDAD PATRICK MD Physical Therapy 01:45:00 PM EDT [facility] ([facility]) Outpatient Attender: Radha VILLA Main office - [facility] 12/10/2019 12:00:00 PM EDT [facility] ([facility]) Outpatient Attender: Masha PRO 11/12/2019 03:3 1:02 PM EDT [facility] Outpatient Attender: Masha Mcelroy [facility] 11/09/2019 10:1 7:01 PM EDT [facility] Outpatient Attender: KAITLYN Mcelroy ENGRAVER SET UP OPERATOR FP 10/30/2019 01:41:00 P M EDT [facility] Outpatient Attender: KAITLYN Mcelroy ENGRAVER SET UP OPERATOR FP 10/05/2019 06:40:01 P M EDT [facility] Outpatient Attender: Masha Mcelroy ENGRA[facility] 10/05/2019 06:3 9:59 PM EDT [facility] Outpatient Attender: KAITLYN Mcelroy ENGRAVER SET UP OPERATOR FP 10/01/2019 01:17:03 P M EDT [facility] Outpatient Attender: KAITLYN Mcelroy ENGRAVER SET UP [facility] 10/01/2019 01:16:00 P M EDT [facility] Outpatient Attender: KAITLYN Mcelroy ENGRAVER [facility] 10/01/2019 01:13:00 P M EDT [facility] Outpatient Attender: KAITLYN Mcelroy [facility] 09/06/2019 02:49:00 P M EDT [facility] Outpatient Attender: Masha Mcelroy [facility] 09/01/2019 12:1 7:01 PM EDT [facility] Outpatient Attender: Radha VILLA [facility] 08/09/2019 10:45:00 AM EST [facility] ([facility]) Outpatient Attender: Masha Mcelroy [facility] 06/09/2019 11:2 7:02 PM EST [facility] Outpatient Attender: Masha Mcelroy [facility] 05/08/2019 09:0 7:01 PM EST [facility] Outpatient Attender: KAITLYN Mcelroy ENGRAVER SET [facility] 05/06/2019 03:46:03 P M EST [facility] Outpatient Attender: ENGRAVER SET UP OPERATOR Navi [facility] 05/06/2019 02:12:02 P M EST [facility] Medications Medication Brand Name Start Date Product Form Dose Route Admi nistrative Instructions Pharmacy Instructions Status Indications Reaction Description Data Source(s) Methocarbamol 500 MG Oral Tablet Methocarbamol 05/25/2020 12:00:00 AM EST ORAL active MED[facility] ([facility]) 20 mg 03/09/2020 12:00:00 [...] 09/02/2019 12:00:00 AM EDT ORAL completed [facility] ([facility]) 100 mg 05/20/2019 12:00:00 AM EST capsule 14 TAKE ONE CAPSULE TWO TIMES A DAY FOR SEVEN DAYS TAKE ONE CAPSULE TWO TIMES A DAY FOR SEVEN DAYS SOLD: 05/20/2019 [facility] gabapentin 300 MG Oral Capsule Gabapentin 04/18/2019 12:00:00 AM EDT ORAL completed MED[facility] ([facility]) Insurance Providers Payer name Policy type / Coverage type Policy ID Covered democrat ID Covered democrat's relationship to sanchez Policy Sanchez Plan Information [facility] COMMUNITY PLAN [facility] [id number] SP [id number] [facility] COMMUNITY PLAN [facility] [id number] SP [id number] [place] O [id number] S [id number] [facility] COMMUNITY PLAN [facility] [id number] SP [id number] Managed Care - [facility] Community Plan P [id number] S [id number] Medicaid S [id number] S [id number] Managed Care - [facility] Community Plan P [id number] S [id number] Medicaid S [id number] S [id number] Managed Care - Community Plan [facility] P [id number] S [id number] Medicaid S [id number] S [id number] [facility] Community Plan Commercial [id number] Self [id number] [facility] Health Maintenance Organization (HMO) [id number] Self [id number] [facility] Community Plan Commercial [id number] Self [id number] [facility] Community Plan Commercial [id number] Self [id number] [facility] Community Plan Commercial [id number] Self [id number] [facility] Community Plan Commercial [id number] Self [id number] [facility] Community Plan Commercial [id number] Self [id number] [facility]/Community [facility] Health Maintenance Organization (HMO) [id number] Self [id number] [facility] Community Plan Commercial [id number] Self [id number] Community Plan - [facility] Commercial [id number] Self [id number] Managed Care - Community Plan [employer] P [id number] S [id number] [facility] Community Plan Commercial [id number] Self [id number] [facility] Community Plan Commercial [id number] Self [id number] [facility] Community Plan Commercial [id number] Self [id number] [facility] Community [id number] Preferred Provider Organization (PPO) [id number] [facility] Community Plan Commercial [id number] Self [id number] [facility] Community Plan Commercial [id number] Self [id number] [facility] Karen/M[facility] Health Maintenance Organization (HMO) [id number] Self [id number] [facility] Community Plan Commercial [id number] Self [id number] [facility] Community Plan Commercial [id number] Self [id number] [facility] Community Plan Commercial [id number] Self [id number] [facility] Community Plan Commercial [id number] Self [id number] [facility] Community Plan Commercial [id number] Self [id number] [facility] Community Plan Commercial [id number] Self [id number] [facility] COMMUNITY PLAN MCDHMO [id number] SP [id number] [facility] Community Plan Commercial [id number] Self [id number] [facility] Health Maintenance Organization (HMO) [id number] Self [id number] [facility] Community Plan Commercial [id number] Self [id number] Managed Care - Community Plan [facility] P [id number] S [id number] [facility] Community Plan Commercial [id number] Self [id number] [facility] COMMUNITY PLAN MCDHMO [id number] SP [id number] Medicaid S [id number] S [id number] [facility] Community Plan Commercial [id number] Self [id number] Managed Care - Community Plan [facility] P [id number] S [id number] [facility] COMMUNITY PLAN MCDHMO UN[facility] COMMUNITY PLAN MCDHMO Self [employer] [facility] COMMUNITY PLAN MCDHMO Community Plan - [facility] Commercial Self [facility] Karen/MCR Health Maintenance Organization (HMO) Self Medicaid S [id number] S [id number] Managed Care - Community Plan [employer] P [id number] S [id number] Managed Care - Community Plan [facility] P [id number] S [id number] [facility] COMMUNITY PLAN [facility] [id number] SP [id number] Medicaid S [id number] S [id number] Managed Care - Community Plan [facility] P [id number] S [id number] Managed Care - Community Plan [facility] P [id number] S [id number] Managed Care BCBS O [id number] S [id number] Medicaid S [id number] S [id number] Managed Care - Community Plan [facility] P UNAVAILABLE S UNAVAILABLE MEDICAID [id number] SP [id number] BLUE CROSS MEYER PLAN [id number] SP [id number] [employer] P [id number] S [id number] MEDICAID [id number] SP [id number] SELF PAY UNAVAILABLE SP UNAVAILA BLE [id number] Problems, Conditions, and Diagnoses Code Display Name Description Problem Type Effective Dates Data Source(s) V70.0 Health Screening Health Screening 10/05/2019 06 :39:45 PM EDT [facility] 786.2 Cough Cough 05/06/2019 03:44:45 PM ES T [facility] Surgeries/Procedures Procedure Description Date Indications Data Source(s) MRI Lower Extremity Any Joint 06/03/2020 12:00:[address] [facility] ([facility] RADIOLOGIC EXAM KNEE COMPLETE 4/MORE VIEWS 05/07/2020 12:00:00 AM EST [facility] ([facility] THERAPEUTIC PX 1/> AREAS EACH 15 MIN EXERCISES 12:00:00 AM EDT [facility] ([facility] THERAPEUTIC PX 1/> AREAS EACH 15 MIN EXERCISES 12:00:00 AM EDT [facility] ([facility] ARTHROCENTESIS ASPIR&/INJECTION MAJOR JT/BURSA 12:00:00 AM EDT [facility] ([facility] THERAPEUTIC PX 1/> AREAS EACH 15 MIN EXERCISES 12:00:00 AM EDT [facility] ([facility] APPLICATION MODALITY 1/> AREAS HOT/COLD PACKS 01/24/20 12:00:00 AM EDT [facility] ([facility] THERAPEUTIC PX 1/> AREAS EACH 15 MIN EXERCISES 12:00:00 AM EDT [facility] ([facility] THERAPEUTIC PX 1/> AREAS EACH 15 MIN EXERCISES 12:00:00 AM EDT [facility] ([facility]) THERAPEUTIC PX 1/> AREAS EACH 15 MIN EXERCISES 12:00:00 AM EDT [facility] ([facility]) THERAPEUTIC PX 1/> AREAS EACH 15 MIN EXERCISES 12:00:00 AM EDT [facility] ([facility]) THERAPEUTIC PX 1/> AREAS EACH 15 MIN EXERCISES 12:00:00 AM EDT [facility] ([facility]) Physical Therapy Eval - Low Complexity 01/06/2020 12:0 0:00 AM EDT [facility] ([facility]) APPLICATION SHORT LEG CAST BELOW KNEE-TOE 11/28/2019 1 2:00:00 AM EDT [facility] ([facility]) APPLICATION SHORT LEG CAST BELOW KNEE-TOE 11/21/2019 1 2:00:00 AM EDT [facility] ([facility]) Repair Flexor Tendon Leg Primary W/O Graft 11/13/2019 12:00:00 AM EDT [facility] ([facility]) Repair Flexor Tendon Leg Primary W/O Graft 11/13/2019 12:00:00 AM EDT [facility] ([facility]) Tenolysis Flexor Or Extensor Tendon Leg Or Ankle 11/12 12:00:00 AM EDT [facility] ([facility]) Tenolysis Flexor Or Extensor Tendon Leg Or Ankle 11/12 12:00:00 AM EDT [facility] ([facility]) MRI Lower Extremity Any Joint 08/06/2019 12:00:[address] [facility] ([facility] RADEX ANKLE COMPLETE MINIMUM 3 VIEWS 07/11/2019 12:00: 00 AM EST [facility] ([facility]) ARTHROCENTESIS ASPIR&/INJECTION MAJOR JT/BURSA 12:00:00 AM EST [facility] ([facility]) Results ID Date Data Source [id number] 06/24/2020 12:00:00 AM EST [facility] Name Value Range Interpretation Code Description Data Alisha rce(s) Supporting Document(s) SARS coronavirus 2 Ag Negative [facility] This lab was ordered by [facility] and reported by [facility]. ID Date Data Source [id number] 02/06/2020 10:20:00 AM EDT [facility] Name Value Range Interpretation Code Description Data Alisha rce(s) Supporting Document(s) HCT 42.2 % 36.0-47.0 N [facility] HGB 14.3 g/dL 12.0-15.5 N [facility] MCH 33.9 G/DL pg 32.0-36.5 N [facility] MCHC 32.1 PG % 27.0-33.0 N [facility] PLATELETS 314 10 10*3/mm3 150-450 N [facility] RBC 4.46 10 10*6/mm3 4.00-5.40 N [facility] RDW 12.4 % 11.5-14.5 N [facility] WBC TOTAL 6.3 4.0-10.0 N [facility] ID Date Data Source [id number] 02/06/2020 10:20:00 AM EDT [facility] Name Value Range Interpretation Code Description Data Alisha rce(s) Supporting Document(s) BG FASTING 87 mg/dL 70-100 N [facility] y Health ID Date Data Source [id number] 11/10/2019 10:30:00 AM EDT [facility] ([facility]) Name Value Range Interpretation Code Description Data Alisha rce(s) Supporting Document(s) Laboratory test finding (navigational concept) Laboratory test result [facility] ([facility]) This test was developed and its performa nce characteristics determined by [employer]. This test has not been FDA cleared [...] in this assay. Performed at: - [facility] [address] [id number] [employer] Installer: Brie Yates MD, Phone: [phone] Not Detected ID Date Data Source [id number] 11/10/2019 12:00:00 AM EDT [facility] Name Value Range Interpretation Code Description Data Alisha rce(s) Supporting Document(s) SARS CORONAVIRUS 2 RNA [facility] This lab was ordered by [facility] and reported by [facility]. ID Date Data Source [id number] 10/01/2019 08:50:15 AM EDT [facility] Measurements & CalculationsHeight: 64.75 inches 164.47 [...] during this visit, including review of any jgbq-ogm-yilkdlv medications, herbal therapies, and/or supplements.Allergy ReviewAllergy List [...] GoodAssessment & Plan Problems:Added: Health Screening (ICD-V70.0) (ANI87-K70.9) Assessment: Instructions: Fast labs ordered to be done prior to your next visit.Assessed:ASTHMA (ICD-493.90) (KHP58-I92.909) Assessment: Instructions: We have sent a refill of your singulair today. please try to avoid asthma triggers.FRANSISCA-generalized anxiety disorder (ICD-300.02) (VZM89-O17.1) Assessment: Instructions: please continue prozac as prescribed. Please continue to monitor report and avoid triggers causing increased anxiety.Allergic rhinitis (ICD-477.9) (KFZ91-Y31.9) Assessment: Instructions: Refilled LoratadinePatient Instructions/Care Plan: ASTHMA: [...] ORAL SINGULAIR 10 MG ORAL TABLET Qty: [id number] Refills: 30[Tablet] To: SINGULAIR 10 MG ORAL TABLET-1 tab by mouth every night at bedtime Qty: 30[Tablet] Refills: 2From: NASAL FLONASE 50 MCG/ACT NASAL SUSPENSION Qty: [id number] Refills: 1[Container] To: FLONASE ALLERGY RELIEF 50 MCG/ACT NASAL SUSPENSION-one spray to each nostril twice daily as needed. Qty: 1[Container] Refills: 1Allergies:BACTRIM (SULFAMETHOXAZOLE-TRIMETHOPRIM TABS) (Critical)SUDAFED (PSEUDOEPHEDRINE HCL TABS) (Severe)ZITHROMAX (AZITHROMYCIN PACK) (Severe)SULFA (Moderate)Orders:COMP METABOLIC PANEL [CPT-93426] CBC W/DIFF [CPT-53072] HgBA1c [CPT-61929] LIPID PANEL [CPT-83625] TSH [CPT-57730] T-4 free [CPT-10142] Vitamin D 250H Unspecified [CPT-57718] URINALYSIS [CPT-93314] Adult - Ofc Vst, EST, Level IV [CPT-54159] Follow-Up Return to clinic: 3-4 months for follow up Clinical Visit Summary CompletedMedications:CLARITIN 10 MG ORAL TABLET (LORATADINE) 1 pill po daily #30[Tablet] x 2 Entered and Authorized by: Masha SAHNI Method used: Electronically to [facility]* (retail) [address] [place] [address] RxID: [id number] ALLERGY RELIEF 50 MCG/ACT NASAL SUSPENSION (FLUTICASONE PROPIONATE) one spray to each nostril twice daily as needed. #1[Container] x 1 Route:NASAL Entered and Authorized by: Masha SAHNI Method used: Electronically to [facility]* ([employer]) [address] [place] [address] Note to Pharmacy: Route: NASAL; Indications: COUGH;SINUSITIS RxID: [id number] 10 MG ORAL TABLET (MONTELUKAST SODIUM) 1 tab by mouth every night at bedtime #30[Tablet] x 2 Route:ORAL Entered and Authorized by: Masha SAHNI Method used: Electronically to [facility]* (retail) [address] [place] [address] Note to Pharmacy: Route: ORAL; Indications: ASTHMA RxID: [id number] 10 MG ORAL CAPSULE (FLUOXETINE HCL) take one tablet by mouth daily #30[Capsule] x 3 Route:ORAL Entered and Authorized by: Masha SAHNI Method used: Electronically to [facility]* (retail) [address] [place] [address] Note to Pharmacy: Route: ORAL; Indications: ANXIETY DEPRESSION RxID: [id number] signed by Masha SAHNI on 10/05/2019 at 6:39 PM Name Value Range Interpretation Code Description Data Alisha rce(s) Supporting Document(s) ID Date Data Source [id number] 08/22/2019 12:52:00 PM EST [facility] Name Value Range Interpretation Code Description Data Alisha rce(s) Supporting Document(s) Laboratory test finding (navigational concept) <pending> [facility] ([facility]) ID Date Data Source [id number] 05/06/2019 02:48:37 PM EST [facility] Measurements & CalculationsHeight: 64.75 inches [...] Syringe 0.5 MLMfr / Lot# / Exp.Date: [employer] / [id number] / 12/17/2019Amt. Given / Route / Site: 0.5 mL / IM / Left DeltoidNDC / CVX: [id number] / 150Administered Date: 05/06/2019 15:51VFC Eligibility: Not [...] May 06, 2019 2:51 PMPatient History Medical History:AdmlvcxetowiG43 DeficiencyNasal polypsSurgical History:tubalNasal polyps removedFamily History:FH DiabetesFH [...] 3 weeks now.Pt stgates was ttrated at [facility] three weeks ago. Pt states treated with [...] during this visit, including review of any wuqk-pok-qmnoxpo medications, herbal therapies, and/or supplements.Allergy ReviewAllergy List [...] is? ExcellentAssessment & Plan Problems:Added: Cough (ICD-786.2) (UHP04-H62) Assessment: Instructions: Please continue medication as prescribed. Please continue adequate hydration to include 6-8 glasses of water daily. Please try to maintain adequate rest.Assessed:O/E-herpes labialis-cold sore (ICD-054.9) (IGW13-N93.1) Assessment: resolved per patientLight cigarette smoker (XRP78-W82.0) Assessment: quit smoking three months ago. Instructions: Congratulations on your smoking cessation. Please try not to resume smoking.ANXIETY DEPRESSION (ICD-300.4) (ZNL31-I27.8) Assessment: We have refilled Prozac today. Pt states working well Instructions: Please continue medication as prescribed. Please continue to monitor and report triggers causing increased anxiety and or depression.Needs influenza immunization (ICD-V04.81) (ANZ75-U66.3) Assessment: Instructions: You have received your flu vaccine today. There may cait soreness at the injection site. Mplease report any adverse reactions.Assessment not SavedHYPERGLYCEMIA (JXC37-R04.9): Patient Instructions/Care Plan: Light cigarette smoker: Congratulations [...] Refills: 3 Method: ElectronicAllergies:BACTRIM (Critical)SUDAFED (Severe)ZITHROMAX (Severe)SULFA (Moderate)Orders:[id number] - Immo Admin (over 19 yrs), 1st Vaccine [CPT-80036] Adult - Ofc Vst, EST, Level IV [CPT-54988] Follow- Up Return to clinic: 3-4 months for follow up Clinical Visit Summary CompletedMedications:PROZAC 10 MG ORAL CAPSULE (FLUOXETINE HCL) take one tablet by mouth daily #30[Capsule] x 3 Route:ORAL Entered and Authorized by: Marilou SAHNI Method used: Electronically to [facility]* (retail) [address] [place] [address] Note to Pharmacy: Route: ORAL; Indications: ANXIETY DEPRESSION RxID: [id number] signed by Masha SAHNI on 05/08/2019 at 9:06 PM Name Value Range Interpretation Code Description Data Alisha rce(s) Supporting Document(s) Procedure Vital Signs ID Date Data Source UNK Name Value Range Interpretation Code Description Data Source(s) Body weight 188.00 [lb_av] 188.00 [lb_av] MEDEN T ([facility]) Body temperature 96.2 [degF] 96.2 [degF] [facility] ([facility] [facility], [facility]) Oxygen saturation in Arterial blood by Pulse oximetry 99 % 99 % [facility] ([facility], [facility]) Respiratory rate 16 /min 16 /min [facility] ( [facility], [facility]) Heart rate 72 /min 72 /min [facility] ([facility], [facility]) Diastolic blood pressure 83 mm[Hg] 83 mm[Hg] [facility] ([facility], [facility]) Systolic blood pressure 158 mm[Hg] 158 mm[Hg] M EDENT ([facility], [facility]) Body temperature 97.3 [degF] 97.3 [degF] [facility] ([facility]) Body temperature 96.0 [degF] 96.0 [degF] [facility] ([facility]) Body weight 87.545 kg 87.545 kg [facility] ([facility]) Body mass index (BMI) [Ratio] 34.2 kg/m2 34.2 k g/m2 [facility] ([facility]) Body weight 193.00 [lb_av] 193.00 [lb_av] [facility] T ([facility]) Body height 63 [in_i] 63 [in_i] [facility] ([facility]) 5'3" Respiratory rate 16 /min 16 /min [facility] ( [facility], ) Heart rate 80 /min 80 /min [facility] Diastolic blood pressure 80 mm[Hg] 80 mm[Hg] [facility] ([facility], ) Systolic blood pressure 112 mm[Hg] 112 mm[Hg] M EDENT ([facility], ) Body mass index (BMI) [Ratio] 29.2 kg/m2 29.2 k g/m2 [facility] ([facility] ) Body weight 162.00 [lb_av] 162.00 [lb_av] [facility] T ([facility]) Body height 62.50 [in_i] 62.50 [in_i] [facility] ([facility]) 5'2.50" Body temperature 99.4 [degF] 99.4 [degF] [facility] ([facility])
== END 2020-07-01 11:36 | disposition home or self-care (01) ==
LOC: M ED 11:01
DX: M54.16 Radiculopathy, lumbar region (principal); I10 Essential (primary) hypertension; Z88.1 Allergy status to other antibiotic agents; Z88.2 Allergy status to sulfonamides; Z79.899 Other long term (current) drug therapy

== ENCOUNTER → 2020-12-10 | Outpatient (REF) | payer OTHER, MEDICAID ==
[~2020-12-10] MED LIST changes: +IBUP-1114 PO; +MONT10TA10 PO; -MONT5TAB2 PO
== END ==
LOC: M SFHCWAGY 16:54
PROVIDERS: ATTEND Obstetrics & Gynecology
DX: R30.0 Dysuria (principal)

== ENCOUNTER 2021-01-28 08:50 | Emergency (ER) | payer MEDICAID, OTHER ==
[~2021-01-28] VITALS: Ht 157.5 cm; Wt 84.7 kg
[2021-01-28] MEDS ORDERED: IBUPROFEN 800 MG TAB PO ONE (10:00)
[2021-01-28 10:34] LABS: BASO % 0.6 % (0.0-1.0); EOS # 0.2 10^3/uL (0.0-0.5); EOS % 2.9 % (0.0-3.0); HEMATOCRIT 41.1 % (36.0-47.0); HEMOGLOBIN 13.6 g/dl (12.0-15.5); LYMPH # 1.8 10^3/uL (1.5-5.0); LYMPH % 28.7 % (24.0-44.0); MEAN CORPUSCULAR HEMOGLOBIN 31.9 pg (27.0-33.0); MEAN CORPUSCULAR HGB CONC 33.1 g/dl (32.0-36.5); MEAN CORPUSCULAR VOLUME 96.3 fl (80.0-96.0); MONO # 0.4 10^3/uL (0.0-0.8); MONO % 6.2 % (2.0-8.0); NEUTROPHILS # 3.8 10^3/uL (1.5-8.5); PLATELET COUNT, AUTOMATED 270 10^3/uL (150-450); RED BLOOD COUNT 4.27 10^6/uL (4.00-5.40); WHITE BLOOD COUNT 6.3 10^3/uL (4.0-10.0)
--- NOTE | 2021-01-28 10:37 | REP ---
INDICATION: left side chest pain into back. COMPARISON: None. TECHNIQUE: Two views FINDINGS: The lungs are clear. The heart is not enlarged. There is no failure. The mediastinum and pleural surfaces are unremarkable. IMPRESSION: No active process. <Electronically signed by Leonel Cruz > 01/28/21 1034
[2021-01-28 10:56] LABS: ALBUMIN 3.4 GM/DL (3.2-5.2); ALT/SGPT 13 U/L (12-78); BILIRUBIN,DIRECT 0.1 MG/DL (0.0-0.2); BILIRUBIN,TOTAL 0.4 MG/DL (0.2-1.0); BLOOD UREA NITROGEN 12 MG/DL (7-18); CALCIUM LEVEL 8.4 MG/DL (8.5-10.1); CARBON DIOXIDE LEVEL 27 MEQ/L (21-32); CHLORIDE LEVEL 110 MEQ/L (98-107); CREATININE FOR GFR 0.67 MG/DL (0.55-1.30); GLOMERULAR FILTRATION RATE > 60.0 (>60); GLUCOSE, FASTING 72 MG/DL (70-100); LIPASE 55 U/L (73-393); POTASSIUM SERUM 4.3 MEQ/L (3.5-5.1); SODIUM LEVEL 140 MEQ/L (136-145); TOTAL PROTEIN 6.6 GM/DL (6.4-8.2)
[2021-01-28 11:28] VITALS: BP 124/62
--- NOTE | 2021-01-28 20:58 | ECGEPIP ---
[facility] - ED Test Date: 2021-01-28 Pat Name: BLADE OWEN Department: Room: - Gender: Female [employer]: JOSEP : 1985 Requested By: EDVIN Fernandez PA-C Order Number: [id number] Reading MD: Jaime Huff Measurements Intervals [place] Rate: 60 P: 19 AL: 158 QRS: 27 QRSD: 80 T: 16 QT: 442 QTc: 442 Interpretive Statements Normal sinus rhythm Similar to tracing done 03-26-16 Electronically Signed on 01-28-2021 20:58:14 EDT by Jaime Huff
== END 2021-01-28 11:31 | disposition home or self-care (01) ==
LOC: M ED 08:50
DX: M94.0 Chondrocostal junction syndrome [Tietze] (principal); J45.909 Unspecified asthma, uncomplicated; G25.81 Restless legs syndrome; M51.9 Unspecified thoracic, thoracolumbar and lumbosacral intervertebral disc disorder; F17.210 Nicotine dependence, cigarettes, uncomplicated; Z79.899 Other long term (current) drug therapy; Z79.51 Long term (current) use of inhaled steroids; Z88.1 Allergy status to other antibiotic agents; Z88.2 Allergy status to sulfonamides; Z88.8 Allergy status to other drugs, medicaments and biological substances

== ENCOUNTER 2021-06-23 09:21 | Emergency (ER) | payer OTHER, MEDICAID ==
[~2021-06-23] VITALS: Ht 157.5 cm; Wt 88.7 kg
[2021-06-23 10:38] LABS: BASO % 0.5 % (0.0-1.0); EOS # 0.2 10^3/uL (0.0-0.5); EOS % 2.5 % (0.0-3.0); HEMATOCRIT 42.2 % (36.0-47.0); LYMPH # 2.2 10^3/uL (1.5-5.0); LYMPH % 33.6 % (24.0-44.0); MEAN CORPUSCULAR HEMOGLOBIN 31.6 pg (27.0-33.0); MEAN CORPUSCULAR HGB CONC 33.2 g/dl (32.0-36.5); MEAN CORPUSCULAR VOLUME 95.3 fl (80.0-96.0); MONO # 0.4 10^3/uL (0.0-0.8); MONO % 6.9 % (2.0-8.0); NEUTROPHILS # 3.6 10^3/uL (1.5-8.5); PLATELET COUNT, AUTOMATED 246 10^3/uL (150-450); RED BLOOD COUNT 4.43 10^6/uL (4.00-5.40); WHITE BLOOD COUNT 6.4 10^3/uL (4.0-10.0)
[2021-06-23 11:03] LABS: ALBUMIN 3.5 GM/DL (3.2-5.2); ALT/SGPT 18 U/L (12-78); BILIRUBIN,DIRECT 0.1 MG/DL (0.0-0.2); BILIRUBIN,TOTAL 0.3 MG/DL (0.2-1.0); BLOOD UREA NITROGEN 13 MG/DL (7-18); CALCIUM LEVEL 8.7 MG/DL (8.5-10.1); CARBON DIOXIDE LEVEL 27 MEQ/L (21-32); CHLORIDE LEVEL 109 MEQ/L (98-107); CREATININE FOR GFR 0.67 MG/DL (0.55-1.30); GLOMERULAR FILTRATION RATE > 60.0 (>60); GLUCOSE, FASTING 91 MG/DL (70-100); POTASSIUM SERUM 4.5 MEQ/L (3.5-5.1); SODIUM LEVEL 141 MEQ/L (136-145); TOTAL PROTEIN 6.8 GM/DL (6.4-8.2)
[2021-06-23 11:04] LABS: LIPASE 70 U/L (73-393)
[2021-06-23 11:25] LABS: HCG, SERUM QUALITATIVE NEGATIVE (NEGATIVE)
[2021-06-23] MEDS ORDERED: ISOVUE-370 76% 100ML VIAL As Ordered ONE (13:19)
[2021-06-23 14:55] VITALS: BP 128/77
== END 2021-06-23 15:34 | disposition home or self-care (01) ==
LOC: M ED 09:21
DX: N83.291 Other ovarian cyst, right side (principal); G43.909 Migraine, unspecified, not intractable, without status migrainosus; F17.200 Nicotine dependence, unspecified, uncomplicated; Z88.1 Allergy status to other antibiotic agents; Z88.2 Allergy status to sulfonamides; Z88.5 Allergy status to narcotic agent
CPT/HCPCS: 36415; 74177; 80048; 80076; 81001; 83690; 84703; 85025; 87086; 99284; Q9967

== ENCOUNTER 2021-08-14 11:05 | Emergency (ER) | payer OTHER, MEDICAID ==
[~2021-08-14] VITALS: Ht 158.8 cm; Wt 87.3 kg
[2021-08-14 11:05] VITALS: BP 144/79
[~2021-08-14 11:05] MED LIST changes: -FLUO10CA16; +FLUO10CA18; -MONT10TA10 PO; +MONT10TA97 PO
[2021-08-14] MEDS ORDERED: LARI1TAB7 (11:19)
== END 2021-08-14 12:35 | disposition home or self-care (01) ==
LOC: M ED 11:05
DX: S93.402A Sprain of unspecified ligament of left ankle, initial encounter (principal); W00.9XXA Unspecified fall due to ice and snow, initial encounter; F17.200 Nicotine dependence, unspecified, uncomplicated; Z88.1 Allergy status to other antibiotic agents; Z88.2 Allergy status to sulfonamides; Y92.9 Unspecified place or not applicable; Y93.9 Activity, unspecified; Y99.9 Unspecified external cause status

== ENCOUNTER 2021-09-27 13:02 | Emergency (ER) | payer MEDICAID, OTHER ==
[~2021-09-27] VITALS: Ht 160 cm; Wt 85.9 kg
[~2021-09-27 13:02] MED LIST changes: +LARI1TAB7
[2021-09-27 14:09] LABS: BASO % 0.5 % (0.0-1.0); EOS # 0.1 10^3/uL (0.0-0.5); HEMATOCRIT 41.6 % (36.0-47.0); HEMOGLOBIN 14.5 g/dl (12.0-15.5); LYMPH # 2.1 10^3/uL (1.5-5.0); LYMPH % 35.5 % (24.0-44.0); MEAN CORPUSCULAR HEMOGLOBIN 32.6 pg (27.0-33.0); MEAN CORPUSCULAR HGB CONC 34.9 g/dl (32.0-36.5); MEAN CORPUSCULAR VOLUME 93.5 fl (80.0-96.0); MONO # 0.5 10^3/uL (0.0-0.8); MONO % 8.2 % (2.0-8.0); NEUTROPHILS # 3.2 10^3/uL (1.5-8.5); NEUTROPHILS % 54.5 % (36.0-66.0); PLATELET COUNT, AUTOMATED 267 10^3/uL (150-450); RED BLOOD COUNT 4.45 10^6/uL (4.00-5.40); WHITE BLOOD COUNT 5.9 10^3/uL (4.0-10.0)
[2021-09-27 14:36] LABS: ALBUMIN 3.5 GM/DL (3.2-5.2); ALT/SGPT 18 U/L (12-78); BILIRUBIN,DIRECT 0.1 MG/DL (0.0-0.2); BILIRUBIN,TOTAL 0.5 MG/DL (0.2-1.0); BLOOD UREA NITROGEN 11 MG/DL (7-18); CARBON DIOXIDE LEVEL 25 MEQ/L (21-32); CHLORIDE LEVEL 111 MEQ/L (98-107); CREATININE FOR GFR 0.78 MG/DL (0.55-1.30); GLOMERULAR FILTRATION RATE > 60.0 (>60); GLUCOSE, FASTING 75 MG/DL (70-100); LIPASE 56 U/L (73-393); POTASSIUM SERUM 4.2 MEQ/L (3.5-5.1); SODIUM LEVEL 142 MEQ/L (136-145); TOTAL PROTEIN 6.8 GM/DL (6.4-8.2)
[2021-09-27 14:53] LABS: HCG, SERUM QUALITATIVE NEGATIVE (NEGATIVE)
[2021-09-27] MEDS ORDERED: KETOROLAC 30 MG/ML 1ML VIAL IV ONE (15:35)
[2021-09-27] MEDS ORDERED: ONDANSETRON 4MG/2ML VIAL IV ONE (15:35)
[2021-09-27] MEDS ORDERED: ISOVUE-370 76% 100ML VIAL As Ordered ONE (15:57)
[2021-09-27] MEDS ORDERED: CIPR-249 PO (16:48)
[2021-09-27] MEDS ORDERED: ONDA4TAB6 PO (16:48)
[2021-09-27 17:08] VITALS: BP 132/68
== END 2021-09-27 17:14 | disposition home or self-care (01) ==
LOC: M ED 13:02
DX: N39.0 Urinary tract infection, site not specified (principal); F41.9 Anxiety disorder, unspecified; F32.9 Major depressive disorder, single episode, unspecified; Z87.891 Personal history of nicotine dependence; Z79.3 Long term (current) use of hormonal contraceptives; Z79.899 Other long term (current) drug therapy; Z88.2 Allergy status to sulfonamides; Z88.1 Allergy status to other antibiotic agents; Z88.8 Allergy status to other drugs, medicaments and biological substances
CPT/HCPCS: 74177; 80048; 80076; 81001; 83690; 84703; 85025; 87086; 96374; 96375; 99284; J1885; J2405; Q9967

== ENCOUNTER 2022-05-26 13:40 | Emergency (ER) | payer OTHER ==
[~2022-05-26] VITALS: Ht 157.5 cm; Wt 89.6 kg
[~2022-05-26 13:40] MED LIST changes: +CIPR-249 PO; -MICR1TAB18 PO; +NORE1TAB94 PO; +ONDA4TAB6 PO
[2022-05-26] MEDS ORDERED: ACETAMINOPHEN 325 MG TAB PO ONE (18:10)
[2022-05-26 18:44] VITALS: BP 125/74
== END 2022-05-26 18:44 | disposition home or self-care (01) ==
LOC: M ED 13:40
DX: S76.012A Strain of muscle, fascia and tendon of left hip, initial encounter (principal); G43.909 Migraine, unspecified, not intractable, without status migrainosus; F41.9 Anxiety disorder, unspecified; F32.A Depression, unspecified; M54.50 Low back pain, unspecified; Z87.891 Personal history of nicotine dependence; Z88.2 Allergy status to sulfonamides; Z88.1 Allergy status to other antibiotic agents; Z79.811 Long term (current) use of aromatase inhibitors; Z79.83 Long term (current) use of bisphosphonates; Z79.2 Long term (current) use of antibiotics; Z79.899 Other long term (current) drug therapy

== ENCOUNTER → 2022-06-22 | Outpatient (REF) | payer OTHER, MEDICAID | LOC: M LAB REF 12:50 | PROVIDERS: ATTEND Nurse Practitioner Family | DX: R39.9 Unspecified symptoms and signs involving the genitourinary system (principal) ==

== ENCOUNTER → 2022-09-21 | Outpatient (REF) | payer OTHER, MEDICAID ==
[2022-09-21 13:52] LABS: RSV AMPLIFICATION NEGATIVE (NEGATIVE)
== END ==
LOC: M LAB REF 12:14
PROVIDERS: ATTEND Physician Assistant
DX: B34.9 Viral infection, unspecified (principal)

== ENCOUNTER → 2022-12-23 | Outpatient (REF) | payer OTHER, MEDICAID ==
[2022-12-23 18:42] LABS: BASO % 0.5 % (0.0-1.0); EOS # 0.1 10^3/uL (0.0-0.5); EOS % 0.8 % (0.0-3.0); HEMATOCRIT 41.1 % (36.0-47.0); HEMOGLOBIN 13.8 g/dl (12.0-15.5); LYMPH # 1.8 10^3/uL (1.5-5.0); MEAN CORPUSCULAR HEMOGLOBIN 32.1 pg (27.0-33.0); MEAN CORPUSCULAR HGB CONC 33.6 g/dl (32.0-36.5); MEAN CORPUSCULAR VOLUME 95.6 fl (80.0-96.0); MONO # 0.4 10^3/uL (0.0-0.8); MONO % 6.5 % (2.0-8.0); NEUTROPHILS # 3.8 10^3/uL (1.5-8.5); NEUTROPHILS % 61.6 % (36.0-66.0); PLATELET COUNT, AUTOMATED 306 10^3/uL (150-450); WHITE BLOOD COUNT 6.2 10^3/uL (4.0-10.0)
[2022-12-23 18:46] LABS: HEMOGLOBIN A1c 4.8 % (4.0-6.0)
[2022-12-23 19:04] LABS: ALBUMIN 3.6 G/DL (3.2-5.2); ALKALINE PHOSPHATASE 75 U/L (46-116); ALT/SGPT < 9 U/L (7.0-40); AST/SGOT 13 U/L (<34); BILIRUBIN,TOTAL 0.7 MG/DL (0.3-1.2); BLOOD UREA NITROGEN 10 MG/DL (9-23); CALCIUM LEVEL 8.2 MG/DL (8.5-10.1); CARBON DIOXIDE LEVEL 27 MMOL/L (20-31); CHLORIDE LEVEL 107 MMOL/L (98-107); CHOLESTEROL LEVEL 141 MG/DL (<200); CHOLESTEROL RISK RATIO 3.21 (<5); CREATININE FOR GFR 0.73 MG/DL (0.55-1.30); GLOMERULAR FILTRATION RATE > 60.0 (>60); GLUCOSE, FASTING 77 MG/DL (60-100); HDL CHOLESTEROL 43.8 MG/DL (>40); LDL CHOLESTEROL 75.6 MG/DL (<100); NON-HDL-C 97.2 MG/DL; POTASSIUM SERUM 4.1 MMOL/L (3.5-5.1); SODIUM LEVEL 140 MMOL/L (136-145); TOTAL PROTEIN 6.6 G/DL (5.7-8.2); TRIGLYCERIDES LEVEL 108 MG/DL (<150)
== END ==
LOC: M LAB REF 17:21
PROVIDERS: ATTEND Nurse Practitioner Family
DX: Z13.228 Encounter for screening for other metabolic disorders (principal)

== ENCOUNTER 2023-04-02 13:43 | Emergency (ER) | payer OTHER ==
[~2023-04-02] VITALS: Ht 157.5 cm; Wt 90.7 kg
[~2023-04-02 13:43] MED LIST changes: -ROPI0.5T3 PO; +ROPI0.5T33 PO
[2023-04-02 14:24] LABS: BASO % 0.5 % (0.0-1.0); EOS # 0.1 10^3/uL (0.0-0.5); HEMATOCRIT 38.8 % (36.0-47.0); HEMOGLOBIN 13.5 g/dl (12.0-15.5); MEAN CORPUSCULAR HEMOGLOBIN 32.5 pg (27.0-33.0); MEAN CORPUSCULAR HGB CONC 34.8 g/dl (32.0-36.5); MEAN CORPUSCULAR VOLUME 93.5 fl (80.0-96.0); MONO # 0.5 10^3/uL (0.0-0.8); MONO % 8.3 % (2.0-8.0); NEUTROPHILS # 3.3 10^3/uL (1.5-8.5); NEUTROPHILS % 55.9 % (36.0-66.0); PLATELET COUNT, AUTOMATED 291 10^3/uL (150-450); RED BLOOD COUNT 4.15 10^6/uL (4.00-5.40); WHITE BLOOD COUNT 5.9 10^3/uL (4.0-10.0)
[2023-04-02 14:30] LABS: APPEARANCE, URINE HAZY (CLEAR); BACTERIA, URINE AUTO NEGATIVE (NEGATIVE); BILIRUBIN, URINE AUTO NEGATIVE (NEGATIVE); BLOOD, URINE BLOOD NEGATIVE (NEGATIVE); COLOR, URINE YELLOW (YELLOW); GLUCOSE, URINE (UA) AUTO NEGATIVE (NEGATIVE); KETONE, URINE AUTO NEGATIVE (NEGATIVE); LEUKOCYTE ESTERASE, URINE AUTO 2+ (NEGATIVE); MUCUS, URINE SMALL (NEGATIVE); NITRITE, URINE AUTO NEGATIVE (NEGATIVE); PROTEIN, URINE AUTO NEGATIVE (NEGATIVE); RBC, URINE AUTO 1 /HPF (0-3); SPECIFIC GRAVITY URINE AUTO 1.018 (1.002-1.035); SQUAMOUS EPITHELIAL CELL UR AU 6 /HPF (0-6); UROBILINOGEN, URINE AUTO 0.2 mg/dL (0.0-2.0); WBC, URINE AUTO 3 /HPF (0-3)
[2023-04-02 14:43] LABS: ALBUMIN 3.4 G/DL (3.2-5.2); BILIRUBIN,DIRECT 0.2 MG/DL (<0.4); BILIRUBIN,TOTAL 0.6 MG/DL (0.3-1.2); TOTAL PROTEIN 6.6 G/DL (5.7-8.2)
[2023-04-02] MEDS ORDERED: ISOVUE-370 76% 100ML VIAL As Ordered ONE (14:47)
[2023-04-02 14:48] LABS: INR 1.08; PROTHROMBIN TIME 13.7 SECONDS (12.5-14.5)
[2023-04-02 14:50] LABS: PARTIAL THROMBOPLASTIN TIME 28.7 SECONDS (24.8-34.2)
[2023-04-02 15:10] VITALS: BP 121/72; TEMP 97.4; O2SAT 98
[2023-04-02] MEDS ORDERED: NITR-67 PO (15:33)
== END 2023-04-02 15:39 | disposition home or self-care (01) ==
LOC: M ED 13:43
DX: N39.0 Urinary tract infection, site not specified (principal); K59.00 Constipation, unspecified; F17.200 Nicotine dependence, unspecified, uncomplicated; Z88.2 Allergy status to sulfonamides; Z88.1 Allergy status to other antibiotic agents; Z88.8 Allergy status to other drugs, medicaments and biological substances; Z79.899 Other long term (current) drug therapy; Z79.2 Long term (current) use of antibiotics; Z79.811 Long term (current) use of aromatase inhibitors
CPT/HCPCS: 36415; 74177; 80047; 80076; 81001; 83690; 84702; 85025; 85610; 85730; 86850; 86900; 86901; 99284; Q9967

== ENCOUNTER 2023-05-22 06:15 | Emergency (ER) | payer OTHER ==
[~2023-05-22] VITALS: Ht 160 cm; Wt 92.1 kg
[~2023-05-22 06:15] MED LIST changes: +NITR-67 PO
[2023-05-22] MEDS ORDERED: NS 1,000 ML IV ONE (07:05)
[2023-05-22] MEDS ORDERED: BENZONATATE 100MG CAPSULE PO ONE (07:05)
[2023-05-22 07:18] LABS: RSV AMPLIFICATION NEGATIVE (NEGATIVE)
[2023-05-22 08:06] LABS: BASO % 0.1 % (0.0-1.0); HEMATOCRIT 37.5 % (36.0-47.0); HEMOGLOBIN 12.9 g/dl (12.0-15.5); LYMPH % 7.1 % (24.0-44.0); MEAN CORPUSCULAR HEMOGLOBIN 32.1 pg (27.0-33.0); MEAN CORPUSCULAR HGB CONC 34.4 g/dl (32.0-36.5); MEAN CORPUSCULAR VOLUME 93.3 fl (80.0-96.0); MONO # 0.6 10^3/uL (0.0-0.8); MONO % 4.1 % (2.0-8.0); NEUTROPHILS % 88.4 % (36.0-66.0); PLATELET COUNT, AUTOMATED 251 10^3/uL (150-450); RED BLOOD COUNT 4.02 10^6/uL (4.00-5.40); WHITE BLOOD COUNT 13.5 10^3/uL (4.0-10.0)
[2023-05-22 08:18] LABS: BLOOD UREA NITROGEN 8 MG/DL (9-23); CALCIUM LEVEL 8.3 MG/DL (8.5-10.1); CARBON DIOXIDE LEVEL 23 MMOL/L (20-31); CHLORIDE LEVEL 106 MMOL/L (98-107); CREATININE FOR GFR 0.69 MG/DL (0.55-1.30); GLOMERULAR FILTRATION RATE > 60.0 (>60); GLUCOSE, FASTING 106 MG/DL (60-100); SODIUM LEVEL 138 MMOL/L (136-145)
[2023-05-22] MEDS ORDERED: ISOVUE-370 76% 100ML VIAL As Ordered ONE (09:46)
[2023-05-22 10:59] LABS: MONO SCRN NEGATIVE (NEGATIVE)
[2023-05-22 11:23] VITALS: BP 129/62; TEMP 100; O2SAT 97
== END 2023-05-22 11:49 | disposition home or self-care (01) ==
LOC: M ED 06:15
DX: J02.9 Acute pharyngitis, unspecified (principal); R50.9 Fever, unspecified; R51.9 Headache, unspecified; F17.200 Nicotine dependence, unspecified, uncomplicated; Z88.1 Allergy status to other antibiotic agents; Z88.2 Allergy status to sulfonamides; Z88.8 Allergy status to other drugs, medicaments and biological substances; Z79.899 Other long term (current) drug therapy; Z79.811 Long term (current) use of aromatase inhibitors
CPT/HCPCS: 70491; 71045; 80048; 83605; 85025; 86308; 87040; 87631; 87880; 96360; 96361; 99283; Q9967

== ENCOUNTER → 2024-01-25 | Outpatient (REF) | payer BC, OTHER ==
[~2024-01-25] MED LIST changes: +FLUO-290; -FLUO10CA18; +ONDA-282 PO; -ONDA4TAB6 PO
[2024-01-25 14:14] LABS: BASO % 0.6 % (0.0-1.0); EOS # 0.1 10^3/uL (0.0-0.5); EOS % 0.9 % (0.0-3.0); HEMATOCRIT 39.4 % (36.0-47.0); HEMOGLOBIN 13.3 g/dl (12.0-15.5); LYMPH # 1.7 10^3/uL (1.5-5.0); MEAN CORPUSCULAR HGB CONC 33.8 g/dl (32.0-36.5); MEAN CORPUSCULAR VOLUME 94.9 fl (80.0-96.0); MONO # 0.4 10^3/uL (0.0-0.8); MONO % 7.6 % (2.0-8.0); NEUTROPHILS # 3.2 10^3/uL (1.5-8.5); NEUTROPHILS % 58.7 % (36.0-66.0); PLATELET COUNT, AUTOMATED 309 10^3/uL (150-450); RED BLOOD COUNT 4.15 10^6/uL (4.00-5.40); WHITE BLOOD COUNT 5.4 10^3/uL (4.0-10.0)
[2024-01-25 14:36] LABS: HEMOGLOBIN A1c 4.8 % (4.0-6.0)
[2024-01-25 14:47] LABS: ALBUMIN 3.4 G/DL (3.2-5.2); ALKALINE PHOSPHATASE 74 U/L (46-116); ALT/SGPT 14 U/L (7.0-40); AST/SGOT 9 U/L (<34); BILIRUBIN,TOTAL 0.5 MG/DL (0.3-1.2); BLOOD UREA NITROGEN 13 MG/DL (9-23); CARBON DIOXIDE LEVEL 25 MMOL/L (20-31); CHLORIDE LEVEL 109 MMOL/L (98-107); CHOLESTEROL LEVEL 137 MG/DL (<200); CHOLESTEROL RISK RATIO 3.36 (<5); CREATININE FOR GFR 0.67 MG/DL (0.55-1.30); GLOMERULAR FILTRATION RATE > 60.0 (>60); GLUCOSE, FASTING 99 MG/DL (60-100); HDL CHOLESTEROL 40.7 MG/DL (>40); LDL CHOLESTEROL 80.7 MG/DL (<100); MAGNESIUM LEVEL 1.9 MG/DL (1.8-2.4); NON-HDL-C 96.3 MG/DL; POTASSIUM SERUM 4.1 MMOL/L (3.5-5.1); SODIUM LEVEL 139 MMOL/L (136-145); TOTAL PROTEIN 6.7 G/DL (5.7-8.2); TRIGLYCERIDES LEVEL 78 MG/DL (<150)
[2024-01-25 14:48] LABS: THYROID STIMULATING HORMONE 3.373 uIU/ML (0.55-4.78); TOTAL 25(OH) VITAMIN D 37.3 NG/ML (20.0-100.0)
== END ==
LOC: M LAB REF 12:31
PROVIDERS: ATTEND Nurse Practitioner Family
DX: E66.9 Obesity, unspecified (principal); E55.9 Vitamin D deficiency, unspecified

== ENCOUNTER 2024-03-20 14:31 | Emergency (ER) | payer BC ==
[~2024-03-20] VITALS: Ht 157.5 cm; Wt 89.9 kg
[2024-03-20 17:00] LABS: APPEARANCE, URINE MANUAL CLEAR (CLEAR); COLOR, URINE MANUAL YELLOW (YELLOW)
[2024-03-20 17:01] LABS: SPECIFIC GRAVITY,URINE MANUAL 1.025 (1.002-1.035)
[2024-03-20 17:02] LABS: BILIRUBIN, URINE MANUAL NEGATIVE (NEGATIVE); BLOOD URINE MANUAL TRACE (NEGATIVE); GLUCOSE, URINE (UA) MANUAL NEGATIVE (NEGATIVE); KETONE, URINE MANUAL NEGATIVE (NEGATIVE); LEUKOCYTE ESTERASE, URINE MAN TRACE (NEGATIVE); NITRITE, URINE MANUAL NEGATIVE (NEGATIVE); PROTEIN, URINE MANUAL TRACE mg/dL (NEGATIVE); UROBILINOGEN, URINE MANUAL NORMAL (NORMAL)
[2024-03-20 17:15] LABS: BACTERIA, URINE NONE SEEN; HYALINE CAST, URINE NONE SEEN /lpf (0-1)
[2024-03-20 17:16] LABS: SQUAMOUS EPITHELIAL CELL URINE SMALL AMOUNT /hpf (SMALL AMT)
[2024-03-20] MEDS ORDERED: BENZ200C70 PO (18:21)
[2024-03-20] MEDS ORDERED: CEPH500C PO (18:21)
[2024-03-20 18:32] VITALS: BP 150/87; TEMP 97.2; O2SAT 100
== END 2024-03-20 18:34 | disposition home or self-care (01) ==
LOC: M ED 14:31
DX: U07.1 COVID-19 (principal); N39.0 Urinary tract infection, site not specified; F17.200 Nicotine dependence, unspecified, uncomplicated; Z88.2 Allergy status to sulfonamides; Z88.1 Allergy status to other antibiotic agents; Z88.8 Allergy status to other drugs, medicaments and biological substances; Z79.2 Long term (current) use of antibiotics; Z79.899 Other long term (current) drug therapy

== ENCOUNTER → 2024-07-24 | Outpatient (REF) | payer BC ==
[~2024-07-24] MED LIST changes: +BENZ200C70 PO; +CEPH500C PO
[2024-07-26 13:52] LABS: HPV APTIMA Not Detected (Not Detected)
== END ==
LOC: M PLALAB 14:59
PROVIDERS: ATTEND Obstetrics & Gynecology
DX: R30.0 Dysuria (principal)

== ENCOUNTER 2024-09-25 13:17 | Emergency (ER) | payer BC ==
[~2024-09-25] VITALS: Ht 157.5 cm; Wt 98.4 kg
[2024-09-25 16:09] VITALS: BP 160/71; TEMP 97.5; O2SAT 100
== END 2024-09-25 16:30 | disposition home or self-care (01) ==
LOC: M ED 13:17
DX: M79.671 Pain in right foot (principal); F41.9 Anxiety disorder, unspecified; F32.A Depression, unspecified; G43.909 Migraine, unspecified, not intractable, without status migrainosus; Z88.2 Allergy status to sulfonamides; Z88.1 Allergy status to other antibiotic agents; Z79.899 Other long term (current) drug therapy; Z79.1 Long term (current) use of non-steroidal anti-inflammatories (NSAID)

== ENCOUNTER → 2024-10-30 | Outpatient (CLI) | payer OTHER ==
[~2024-10-30] MED LIST changes: +TOPI-257; -TOPI100T9
[2024-10-30 11:15] LABS: BASO % 0.4 % (0.0-1.0); EOS # 0.1 10^3/uL (0.0-0.5); EOS % 1.3 % (0.0-3.0); HEMATOCRIT 39.7 % (36.0-47.0); HEMOGLOBIN 13.3 g/dl (12.0-15.5); LYMPH % 37.1 % (24.0-44.0); MEAN CORPUSCULAR HEMOGLOBIN 31.9 pg (27.0-33.0); MEAN CORPUSCULAR HGB CONC 33.5 g/dl (32.0-36.5); MEAN CORPUSCULAR VOLUME 95.2 fl (80.0-96.0); MONO # 0.5 10^3/uL (0.0-0.8); MONO % 8.2 % (2.0-8.0); NEUTROPHILS # 2.9 10^3/uL (1.5-8.5); NEUTROPHILS % 52.5 % (36.0-66.0); PLATELET COUNT, AUTOMATED 304 10^3/uL (150-450); RED BLOOD COUNT 4.17 10^6/uL (4.00-5.40); WHITE BLOOD COUNT 5.5 10^3/uL (4.0-10.0)
[2024-10-30 11:37] LABS: HEMOGLOBIN A1c 4.9 % (4.0-6.0)
[2024-10-30 11:38] LABS: ALBUMIN 3.3 G/DL (3.2-5.2); ALKALINE PHOSPHATASE 74 U/L (35-104); ALT/SGPT 14 U/L (7.0-40); AST/SGOT 9 U/L (<34); BILIRUBIN,TOTAL 0.5 MG/DL (0.3-1.2); BLOOD UREA NITROGEN 9 MG/DL (9-23); CALCIUM LEVEL 8.8 MG/DL (8.5-10.1); CARBON DIOXIDE LEVEL 26 MMOL/L (20-31); CHLORIDE LEVEL 106 MMOL/L (98-107); CREATININE FOR GFR 0.65 MG/DL (0.55-1.30); GLOMERULAR FILTRATION RATE > 90.0 (>60); GLUCOSE, FASTING 80 MG/DL (60-100); MAGNESIUM LEVEL 1.9 MG/DL (1.8-2.4); POTASSIUM SERUM 4.1 MMOL/L (3.5-5.1); SODIUM LEVEL 140 MMOL/L (136-145); TOTAL PROTEIN 6.5 G/DL (5.7-8.2)
[2024-10-30 11:39] LABS: THYROID STIMULATING HORMONE 1.736 uIU/ML (0.55-4.78)
== END ==
LOC: M LAB 09:22
PROVIDERS: ATTEND Nurse Practitioner Family
DX: E66.9 Obesity, unspecified (principal)

== ENCOUNTER → 2024-12-28 | Outpatient (REF) | payer OTHER | LOC: M LAB REF 17:37 | PROVIDERS: ATTEND Physician Assistant | DX: J02.9 Acute pharyngitis, unspecified (principal) ==

== ENCOUNTER → 2025-02-04 | Outpatient (REF) | payer OTHER ==
[~2025-02-04] MED LIST changes: +NORE-23 PO; -NORE1TAB94 PO
[2025-02-04 13:03] LABS: CHOLESTEROL LEVEL 161.0 MG/DL (<200); CHOLESTEROL RISK RATIO 3.41 (<5); LDL CHOLESTEROL 94.6 MG/DL (<100); NON-HDL-C 113.8 MG/DL; TRIGLYCERIDES LEVEL 96.0 MG/DL (<150)
== END ==
LOC: M LAB REF 12:21
PROVIDERS: ATTEND Nurse Practitioner Family
DX: E66.9 Obesity, unspecified (principal)

== ENCOUNTER → 2025-03-05 | Outpatient (REF) | payer OTHER | LOC: M LAB REF 11:57 | PROVIDERS: ATTEND Student in an Organized Health Care Education/Training Program | DX: R35.0 Frequency of micturition (principal) ==